=== PATIENT | female | born 1940 | race Caucasian/White ===

== ENCOUNTER 2016-04-15 11:10 | Outpatient (CLI) | payer MEDICARE, OTHER | END 2016-04-15 11:11 | disposition home or self-care (01) | DX: R68.89 Other general symptoms and signs (principal) ==

== ENCOUNTER 2016-04-22 08:00 | Outpatient (CLI) | payer MEDICARE, OTHER | END 2016-04-22 08:01 | disposition home or self-care (01) | DX: R76.9 Abnormal immunological finding in serum, unspecified (principal) ==

== ENCOUNTER 2016-11-14 09:35 | Outpatient (CLI) | payer MEDICARE, OTHER ==
[2016-11-14 18:03] LABS: ALBUMIN/GLOBULIN RATIO 1.6 (1.0-2.2); BILIRUBIN,TOTAL 0.8 mg/dL (0.2-1.0); BUN - BLOOD UREA NITROGEN 20 mg/dL (6-20); CALCIUM 9.6 mg/dL (8.5-10.3); CARBON DIOXIDE - CO2 28 mmol/L (21-32); CHLORIDE 106 mmol/L (101-111); CHOL/HDL RATIO 3.8 (<4.4); CHOLESTEROL 176 mg/dL; GFR - MDRD 54 (>89); GLUCOSE 103 mg/dL (70-100); HDL CHOLESTEROL 46 mg/dL; LDL/HDL RATIO 2.3 (<4.4); POTASSIUM 4.5 mmol/L (3.5-5.0); SODIUM 141 mmol/L (135-145); TOTAL PROTEIN 7.1 g/dL (6.7-8.2); TRIGLYCERIDES 122 mg/dL; VLDL CHOLESTEROL 24 mg/dL
[2016-11-14 18:05] LABS: BASOPHILS % (AUTO) 0.7 %; EOSINOPHILS # (AUTO) 0.1 10^3/uL (0.0-0.7); EOSINOPHILS % (AUTO) 1.2 %; HCT - HEMATOCRIT 42.3 % (37.0-47.0); HGB - HEMOGLOBIN 13.8 g/dL (12.0-16.0); LYMPHOCYTES # (AUTO) 1.5 10^3/uL (1.5-3.5); MEAN CORPUSCULAR HEMOGLOBIN 28.5 pg (27.0-31.0); MEAN CORPUSCULAR HGB CONC 32.7 g/dL (32.0-36.0); MEAN CORPUSCULAR VOLUME 87.1 fL (81.0-99.0); MEAN PLATELET VOLUME 8.8 fL (7.9-10.8); MONOCYTES # (AUTO) 0.5 10^3/uL (0.0-1.0); MONOCYTES % (AUTO) 9.6 %; NEUTROPHILS # (AUTO) 2.9 10^3/uL (1.5-6.6); NEUTROPHILS % (AUTO) 58.5 %; NUCLEATED RED BLOOD CELLS AUTO 0.1 /100WBC; RED BLOOD COUNT 4.85 10^6/uL (4.20-5.40); RED CELL DISTRIBUTION WIDTH 13.9 % (12.0-15.0)
[2016-11-14 18:21] LABS: HEMOGLOBIN A1C 0.55 g/dL
== END 2016-11-14 09:36 | disposition home or self-care (01) ==
LOC: LAB.R 09:35
PROVIDERS: ATTEND Nurse Practitioner Primary Care
DX: E55.9 Vitamin D deficiency, unspecified (principal); R73.01 Impaired fasting glucose; R53.81 Other malaise; E78.2 Mixed hyperlipidemia
CPT/HCPCS: 80053; 80061; 82306; 83036; 84443; 85025

== ENCOUNTER 2017-02-26 11:03 | Outpatient (CLI) | payer MEDICARE, OTHER ==
[2017-02-26 15:24] LABS: BASOPHILS % (AUTO) 0.7 %; EOSINOPHILS # (AUTO) 0.2 10^3/uL (0.0-0.7); EOSINOPHILS % (AUTO) 3.4 %; HCT - HEMATOCRIT 41.1 % (37.0-47.0); HGB - HEMOGLOBIN 13.8 g/dL (12.0-16.0); LYMPHOCYTES # (AUTO) 1.7 10^3/uL (1.5-3.5); MEAN CORPUSCULAR HEMOGLOBIN 29.1 pg (27.0-31.0); MEAN CORPUSCULAR HGB CONC 33.6 g/dL (32.0-36.0); MEAN CORPUSCULAR VOLUME 86.7 fL (81.0-99.0); MONOCYTES # (AUTO) 0.6 10^3/uL (0.0-1.0); MONOCYTES % (AUTO) 11.4 %; NEUTROPHILS # (AUTO) 2.4 10^3/uL (1.5-6.6); NEUTROPHILS % (AUTO) 49.5 %; RED BLOOD COUNT 4.74 10^6/uL (4.20-5.40); RED CELL DISTRIBUTION WIDTH 14.4 % (12.0-15.0); UNCORRECTED WHITE BLOOD COUNT 4.9 x10^3/uL; WHITE BLOOD COUNT 4.9 x10^3/uL (4.8-10.8)
[2017-02-26 15:33] LABS: ALBUMIN/GLOBULIN RATIO 1.4 (1.0-2.2); BILIRUBIN,TOTAL 0.5 mg/dL (0.2-1.0); BUN - BLOOD UREA NITROGEN 14 mg/dL (6-20); CALCIUM 9.4 mg/dL (8.5-10.3); CARBON DIOXIDE - CO2 26 mmol/L (21-32); CHLORIDE 101 mmol/L (101-111); CHOL/HDL RATIO 4.3 (<4.4); CHOLESTEROL 175 mg/dL; CREATININE 0.9 mg/dL (0.4-1.0); GFR - MDRD 61 (>89); GLUCOSE 95 mg/dL (70-100); HDL CHOLESTEROL 41 mg/dL; LDL/HDL RATIO 2.5 (<4.4); POTASSIUM 4.3 mmol/L (3.5-5.0); SODIUM 136 mmol/L (135-145); TOTAL PROTEIN 7.2 g/dL (6.7-8.2); TRIGLYCERIDES 163 mg/dL; VLDL CHOLESTEROL 33 mg/dL
== END 2017-02-26 11:04 | disposition home or self-care (01) ==
LOC: LAB.R 11:03
PROVIDERS: ATTEND Physician Assistant Medical
DX: E55.9 Vitamin D deficiency, unspecified (principal); E78.2 Mixed hyperlipidemia; Z79.899 Other long term (current) drug therapy
CPT/HCPCS: 80053; 80061; 82306; 85025

== ENCOUNTER 2017-04-10 08:20 | Outpatient (CLI) | payer MEDICARE, OTHER ==
--- NOTE | 2017-04-11 09:25 | DEXA Report ---
DEXA SCAN: 04/10/2017 COMPARISON: None. In accordance with the International Society for Clinical Densitometry (ISCD) guidelines, data from previous exams may be reanalyzed using current recommendations and techniques. This is done to allow a more accurate basis for comparison with the current study. INDICATION: Bone mineral density screening. TECHNIQUE: Standard DEXA screening of the hip and lumbar spine. Dual energy x- ray absorptiometry (DXA) was performed on a [employer] system. FINDINGS: Femoral neck bone mineral density measures 0.765 g/cm2, which corresponds to a T-score of -2.0 and Z-score -0.3. WHO classification osteopenia. Lumbar spine bone mineral density is 1.044 g/cm2, which corresponds to a T- score of -1.1 and Z-score 0.3. WHO classification osteopenia. The data for the lumbar spine is as follows: REGION BMD (g/cm/cm) T-SCORE Z-SCORE L1 1.003 -1.1 0.4 L2 0.988 -1.8 -0.3 L3 1.025 -1.5 0.0 L4 1.135 -0.5 0.9 TOTAL 1.044 -1.1 0.3 NOTE: All evaluable vertebrae are used for classification. The data for the hip is as follows: REGION BMD (g/cm/cm) T-SCORE Z-SCORE Neck 0.765 -2.0 -0.3 TOTAL 0.817 -1.5 0.0 NOTE: The femoral neck or total proximal femur, whichever is lowest, is used for classification. IMPRESSION: THE WHO CLASSIFICATION BASED ON THE INTERNATIONAL REFERENCE STANDARD IS OSTEOPENIA. THE FRACTURE RISK IS INCREASED. RECOMMENDATION: Patients with diagnosis of osteoporosis or osteopenia should have regular bone mineral density assessment. For those eligible for Medicare, routine testing is allowed once every 2 years. Testing frequency can be increased for patients who have rapidly progressing disease or for those who are receiving medical therapy to restore bone mass. COMMENT: World Health Organization (WHO) definitions for osteoporosis and osteopenia: NORMAL BMD: T-score at 1.0 or higher, fracture risk is low. OSTEOPENIA BMD: T-score between 1.0 and -2.5, fracture risk is increased. OSTEOPOROSIS BMD: T-score at 2.5 or lower, fracture risk high. National Osteoporosis Foundation recommends: 1. Obtain adequate dietary calcium (at least 1200 mg per day) and vitamin D (400 -800 international units per day). 2. Participate, as appropriate, in regular weightbearing and muscle- strengthening exercise. 3. Avoid tobacco use and reduce alcohol and caffeine intake. 4. For more detailed information see the website at www.NOF.org. MTDD
== END 2017-04-10 08:21 | disposition home or self-care (01) ==
LOC: DI 08:20
PROVIDERS: ATTEND Physician Assistant Medical
DX: M85.89 Other specified disorders of bone density and structure, multiple sites (principal)
CPT/HCPCS: 77080

== ENCOUNTER 2017-08-27 08:00 | Outpatient (CLI) | payer MEDICARE, OTHER ==
[2017-08-27 17:15] LABS: THYROID STIMULATING HORMONE 1.3 uIU/mL (0.34-5.60)
[2017-08-27 17:17] LABS: FREE T4 (FREE THYROXINE) 0.81 ng/dL (0.58-1.64)
== END 2017-08-27 08:01 | disposition home or self-care (01) ==
LOC: LAB.R 08:00
PROVIDERS: ATTEND Physician Assistant Medical
DX: L85.3 Xerosis cutis (principal)
CPT/HCPCS: 84439; 84443; 84481

== ENCOUNTER 2018-02-25 08:00 | Outpatient (CLI) | payer MEDICARE, OTHER ==
[2018-02-25 11:26] LABS: BASOPHILS % (AUTO) 0.6 %; EOSINOPHILS # (AUTO) 0.2 10^3/uL (0.0-0.7); EOSINOPHILS % (AUTO) 3.7 %; HGB - HEMOGLOBIN 13.6 g/dL (12.0-16.0); LYMPHOCYTES # (AUTO) 2.1 10^3/uL (1.5-3.5); LYMPHOCYTES % (AUTO) 38.7 %; MEAN CORPUSCULAR HEMOGLOBIN 28.9 pg (27.0-31.0); MEAN CORPUSCULAR HGB CONC 33.5 g/dL (32.0-36.0); MEAN CORPUSCULAR VOLUME 86.3 fL (81.0-99.0); MEAN PLATELET VOLUME 8.7 fL (7.9-10.8); MONOCYTES # (AUTO) 0.6 10^3/uL (0.0-1.0); MONOCYTES % (AUTO) 11.1 %; NEUTROPHILS # (AUTO) 2.4 10^3/uL (1.5-6.6); NEUTROPHILS % (AUTO) 45.9 %; PLT - PLATELET COUNT 248 10^3/uL (130-450); RED BLOOD COUNT 4.68 10^6/uL (4.20-5.40); RED CELL DISTRIBUTION WIDTH 14.4 % (12.0-15.0); WHITE BLOOD COUNT 5.3 x10^3/uL (4.8-10.8)
[2018-02-25 11:41] LABS: ALBUMIN 4.2 g/dL (3.2-5.5); ALBUMIN/GLOBULIN RATIO 1.6 (1.0-2.2); ALKALINE PHOSPHATASE 65 IU/L (42-121); ALT ALANINE AMINOTRANSFERASE 13 IU/L (10-60); AST ASPARTATE AMINOTRANSFERASE 18 IU/L (10-42); BILIRUBIN,TOTAL 0.9 mg/dL (0.2-1.0); BUN - BLOOD UREA NITROGEN 14 mg/dL (6-20); CALCIUM 9.1 mg/dL (8.5-10.3); CARBON DIOXIDE - CO2 27 mmol/L (21-32); CHLORIDE 104 mmol/L (101-111); CHOL/HDL RATIO 3.6 (<4.4); CHOLESTEROL 183 mg/dL; CREATININE 0.9 mg/dL (0.4-1.0); GFR - MDRD 61 (>89); GLUCOSE 94 mg/dL (70-100); HDL CHOLESTEROL 51 mg/dL; LDL CHOLESTEROL,CALCULATED 108 mg/dL; LDL/HDL RATIO 2.1 (<4.4); SODIUM 137 mmol/L (135-145); TOTAL PROTEIN 6.9 g/dL (6.7-8.2); VLDL CHOLESTEROL 24 mg/dL
== END 2018-02-25 23:59 | disposition home or self-care (01) ==
LOC: LAB.R 08:00
PROVIDERS: ATTEND Physician Assistant Medical
DX: E55.9 Vitamin D deficiency, unspecified (principal); Z79.899 Other long term (current) drug therapy; M15.9 Polyosteoarthritis, unspecified; L85.3 Xerosis cutis; E78.2 Mixed hyperlipidemia
CPT/HCPCS: 80053; 80061; 82306; 83721; 84443; 85025

== ENCOUNTER 2018-03-06 08:00 | Outpatient (CLI) | payer MEDICARE, OTHER ==
[2018-03-06 11:34] LABS: BILIRUBIN,URINE NEGATIVE (NEGATIVE); GLUCOSE, URINE (UA) NEGATIVE (NEGATIVE); KETONES,URINE (UA) NEGATIVE (NEGATIVE); LEUKOCYTE ESTERASE, URINE NEGATIVE (NEGATIVE); NITRITE,URINE NEGATIVE (NEGATIVE); OCCULT BLOOD,URINE NEGATIVE (NEGATIVE); PH,URINE 5.5 PH (5.0-7.5); PROTEIN,URINE NEGATIVE (NEGATIVE); UROBILINOGEN,URINE 0.2 (NORMAL) E.U./dL (NORMAL)
[2018-03-06 11:37] LABS: CLARITY,URINE CLEAR (CLEAR)
== END 2018-03-06 23:59 | disposition home or self-care (01) ==
LOC: LAB.R 08:00
PROVIDERS: ATTEND Physician Assistant Medical
DX: R32 Unspecified urinary incontinence (principal)
CPT/HCPCS: 81001; 81003; 87086

== ENCOUNTER 2018-09-22 16:15 | Outpatient (CLI) | payer MEDICARE, OTHER ==
[2018-09-22 16:34] LABS: BASOPHILS % (AUTO) 0.6 %; EOSINOPHILS # (AUTO) 0.1 10^3/uL (0.0-0.7); EOSINOPHILS % (AUTO) 1.8 %; HGB - HEMOGLOBIN 13.5 g/dL (12.0-16.0); LYMPHOCYTES # (AUTO) 1.9 10^3/uL (1.5-3.5); MEAN CORPUSCULAR HGB CONC 31.1 g/dL (32.0-36.0); MEAN CORPUSCULAR VOLUME 89.9 fL (81.0-99.0); MEAN PLATELET VOLUME 9.7 fL (7.9-10.8); MONOCYTES # (AUTO) 0.7 10^3/uL (0.0-1.0); NEUTROPHILS # (AUTO) 3.8 10^3/uL (1.5-6.6); NEUTROPHILS % (AUTO) 57.3 %; PLT - PLATELET COUNT 286 10^3/uL (130-450); RED BLOOD COUNT 4.83 10^6/uL (4.20-5.40); WHITE BLOOD COUNT 6.6 x10^3/uL (4.8-10.8)
== END 2018-09-22 16:16 | disposition home or self-care (01) ==
LOC: LAB 16:15
PROVIDERS: ATTEND Nurse Practitioner
DX: R53.83 Other fatigue (principal)
CPT/HCPCS: 36415; 84443; 85025

== ENCOUNTER 2019-03-16 16:52 | Outpatient (CLI) | payer MEDICARE, OTHER ==
[2019-03-16 17:31] LABS: BASOPHILS % (AUTO) 0.6 %; EOSINOPHILS # (AUTO) 0.2 10^3/uL (0.0-0.7); EOSINOPHILS % (AUTO) 2.7 %; HGB - HEMOGLOBIN 13.9 g/dL (12.0-16.0); LYMPHOCYTES # (AUTO) 1.9 10^3/uL (1.5-3.5); LYMPHOCYTES % (AUTO) 28.7 %; MEAN CORPUSCULAR HEMOGLOBIN 28.8 pg (27.0-31.0); MEAN CORPUSCULAR VOLUME 90.1 fL (81.0-99.0); MEAN PLATELET VOLUME 9.8 fL (7.9-10.8); MONOCYTES # (AUTO) 0.7 10^3/uL (0.0-1.0); MONOCYTES % (AUTO) 9.6 %; NEUTROPHILS # (AUTO) 3.9 10^3/uL (1.5-6.6); PLT - PLATELET COUNT 251 10^3/uL (130-450); RED BLOOD COUNT 4.83 10^6/uL (4.20-5.40); RED CELL DISTRIBUTION WIDTH 13.9 % (12.0-15.0); WHITE BLOOD COUNT 6.8 x10^3/uL (4.8-10.8)
[2019-03-16 17:43] LABS: ALBUMIN 4.4 g/dL (3.2-5.5); ALBUMIN/GLOBULIN RATIO 1.3 (1.0-2.2); BILIRUBIN,TOTAL 0.5 mg/dL (0.2-1.0); CALCIUM 10.1 mg/dL (8.5-10.3); CREATININE 0.9 mg/dL (0.4-1.0); TOTAL PROTEIN 7.7 g/dL (6.7-8.2)
[2019-03-16 17:59] LABS: CREATINE KINASE MB 2.9 ng/mL (0.6-6.3)
[2019-03-16 18:29] LABS: THYROID STIMULATING HORMONE 1.11 uIU/mL (0.34-5.60)
[2019-03-16 18:31] LABS: FREE T4 (FREE THYROXINE) 0.94 ng/dL (0.58-1.64)
--- NOTE | 2019-03-17 12:49 | XRAY Report ---
Reason: CHEST PAIN Procedure Date: 03/16/2019 Accession Number: [id number] / [id number] Procedure: XR - Chest 2 View X-Ray CPT Code: 12208 Final Report FULL RESULT: EXAM: CHEST RADIOGRAPHY EXAM DATE: 03/16/2019 05:30 PM. CLINICAL HISTORY: Chest pain. COMPARISON: CHEST 2 VIEW PA/LAT 04/05/2015 11:16 AM. TECHNIQUE: 2 views. FINDINGS: Lungs/Pleura: No focal opacities evident. No pleural effusion. No pneumothorax. Normal volumes. Mediastinum: Heart and mediastinal contours are unremarkable. Other: None. IMPRESSION: No acute cardiopulmonary abnormality. RADIA
== END 2019-03-16 16:53 | disposition home or self-care (01) ==
LOC: LAB 16:52 → DI 16:53
PROVIDERS: ATTEND Nurse Practitioner
DX: R07.9 Chest pain, unspecified (principal); R53.83 Other fatigue; E66.3 Overweight; E55.9 Vitamin D deficiency, unspecified
CPT/HCPCS: 36415; 71046; 80053; 82553; 84439; 84443; 84481; 84484; 85025

== ENCOUNTER 2019-03-16 19:31 | Emergency (ER) | payer MEDICARE, OTHER ==
[2019-03-16 19:57] LABS: BASOPHILS # (AUTO) 0.1 10^3/uL (0.0-0.1); BASOPHILS % (AUTO) 0.8 %; EOSINOPHILS # (AUTO) 0.2 10^3/uL (0.0-0.7); HGB - HEMOGLOBIN 13.8 g/dL (12.0-16.0); LYMPHOCYTES % (AUTO) 29.8 %; MEAN CORPUSCULAR HGB CONC 31.9 g/dL (32.0-36.0); MEAN CORPUSCULAR VOLUME 90.8 fL (81.0-99.0); MEAN PLATELET VOLUME 9.7 fL (7.9-10.8); MONOCYTES # (AUTO) 0.7 10^3/uL (0.0-1.0); MONOCYTES % (AUTO) 10.6 %; NEUTROPHILS # (AUTO) 3.7 10^3/uL (1.5-6.6); NEUTROPHILS % (AUTO) 55.5 %; PLT - PLATELET COUNT 247 10^3/uL (130-450); RED BLOOD COUNT 4.76 10^6/uL (4.20-5.40); RED CELL DISTRIBUTION WIDTH 13.8 % (12.0-15.0); WHITE BLOOD COUNT 6.6 x10^3/uL (4.8-10.8)
[2019-03-16 20:10] LABS: ALBUMIN 4.3 g/dL (3.2-5.5); ALBUMIN/GLOBULIN RATIO 1.3 (1.0-2.2); BILIRUBIN,TOTAL 0.5 mg/dL (0.2-1.0); CALCIUM 9.8 mg/dL (8.5-10.3); CREATININE 1.1 mg/dL (0.4-1.0); TOTAL PROTEIN 7.5 g/dL (6.7-8.2)
--- NOTE | 2019-03-16 20:23 | ED Physician Documentation ---
History of Present Illness - Stated complaint Stated Complaint: ABNORMAL LABS - Chief complaint Chief Complaint: Cardiac - Additonal information Additional information: This is a 79-year-old female denies past medical history who presents with resolved episodes of chest pressure and elevated troponin. Patient states that on Friday evening she developed an episode of chest pressure lasted 15 minutes with substernal and resolved with rest. She denies diaphoresis or radiation. She had another episode last night which was almost identical. She denies any cardiac history, has never had a stress test or catheterization. She was recently in [facility], and states that she is been feeling bit fatigued recently but she pinned this on the jet leg and travel to high altitude. She currently has no chest pain. She went into see her doctor this morning and had labs and a chest x-ray done, that work-up came back with a concerning troponin of around 160 so she was sent here for further evaluation. She is currently asymptomatic Review of Systems Constitutional: denies: Fever Cardiac: reports: Chest pain / pressure Respiratory: denies: Dyspnea GI: denies: Abdominal Pain : denies: Dysuria Skin: denies: Rash Neurologic: reports: Generalized weakness Immunocompromised: denies: Immunocompromised PD PAST MEDICAL HISTORY - Past Medical History Cardiovascular: None Respiratory: None Neuro: None Endocrine/Autoimmune: None GI: None EQUIPMENT ANALYST: None : None HEENT: None Psych: None Musculoskeletal: Osteoarthritis Derm: None - Past Surgical History Past Surgical History: Yes General: Colonoscopy Ortho: Hip replacement /EQUIPMENT ANALYST: Oophrectomy HEENT: Cataracts - Allergies Allergies/Adverse Reactions: Allergies Allergy/AdvReac Type Severity Reaction Status Date / Time No Known Drug Allergies Allergy Verified 12/08/12 13:49 - Social History Does the pt smoke?: No Smoking Status: Never smoker Does the pt drink ETOH?: No Does the pt have substance abuse?: No - Immunizations Immunizations are current?: Yes - POLST Patient has POLST: No PD ED PE NORMAL - Vitals Vital signs reviewed: Yes - General General: Alert and oriented X 3, No acute distress - HEENT HEENT: PERRL - Neck Neck: Supple, no meningeal sign - Cardiac Cardiac: RRR, No murmur - Respiratory Respiratory: Clear bilaterally - Abdomen Abdomen: Normal bowel sounds, Soft, Non tender, Non distended - Derm Derm: Warm and dry - Extremities Extremities: No deformity - Neuro Neuro: Alert and oriented X 3 - Psych Psych: Normal mood, Normal affect Results - Vitals Vitals: Oxygen O2 Source Room air - EKG (time done) 19:58 Other comments: Other comments (Rate 73, rhythm sinus, there is slight ST depression laterally, with T wave inversions in the anterior leads and lateral leads. There is no significant ST elevation. There is poor R wave progression.) - Labs Labs: Laboratory Tests 03/16/19 03/16/19 03/16/19 19:52 19:52 19:52 WBC 6.6 RBC 4.76 Hgb 13.8 Hct 43.2 MCV 90.8 MCH 29.0 MCHC 31.9 L RDW 13.8 Plt Count 247 MPV 9.7 Neut # (Auto) 3.7 Lymph # (Auto) 2.0 Stokes # (Auto) 0.7 Eos # (Auto) 0.2 Baso # (Auto) 0.1 Absolute Nucleated RBC 0.00 Nucleated RBC % 0.0 Sodium 139 Potassium 3.4 L Chloride 106 Carbon Dioxide 26 Anion Gap 7.0 BUN 24 H Creatinine 1.1 H Estimated GFR (MDRD) 48 L Glucose 135 H Calcium 9.8 Total Bilirubin 0.5 AST 17 ALT 14 Alkaline Phosphatase 56 Troponin I High Sens 268.0 H* Total Protein 7.5 Albumin 4.3 Globulin 3.2 Albumin/Globulin Ratio 1.3 Lipase 36 - Rads (name of study) CXR 2 view Radiology: Other (My preliminary read shows no consolidation, pneumothorax, or cardiomegaly.) PD MEDICAL DECISION MAKING - ED course Complexity details: considered differential (ACS, pneumonia, pneumothorax, peptic ulcer disease, gastritis, Dysrhythmia) ED course: On arrival patient is very well-appearing vital signs are unremarkable and patient is symptom-free. Labs were performed, they are notable for a troponin which rhett from her earlier level of 196 up to 268. Her EKG does show T wave inversions and slight ST depressions, but there are no ST elevations. She was given 325 mg of aspirin and started on a heparin drip. She continues to be asymptomatic on reassessment. She has never had any cardiac work-up in the past. She has no clinical signs of DVT, and the complete resolution of her pain as well as the substernal pressure-like characteristic of it makes pulmonary embolism highly unlikely. Her chest x-ray shows no acute cardiopulmonary abnormality on my read. I spoke with Dr. Mina of paving block cutter at [facility] at 21:00, after reviewing the case he recommends that patient be transferred admitted to the hospitalist service, they obtain a set of normal troponins, continue the heparin, and unless there are significant changes They can speak to the paving block cutter manager of organizational development tomorrow morning. I Spoke with Dr. Merino of the hospitalist service, who accepted the patient for transfer. She will be transferred via ALS with heparin running. Patient is in agreement the plan, symptom free at this time. I updated her and answered her questions. Departure - Departure Disposition: 02 Transfer Acute Care Hosp Clinical Impression: NSTEMI (non-ST elevated myocardial infarction) Condition: Good Discharge Date/Time: 03/16/19 22:45
[2019-03-16] MEDS ORDERED: HEPARIN 25000UNITS/500ML (D5W) 25,000 UNIT/500 ML BAG IV STA (20:33)
[2019-03-16] MEDS ORDERED: ASPIRIN 325 MG TABLET PO STA (20:33)
[2019-03-16 22:10] VITALS: BP 160/94
== END 2019-03-16 22:45 | disposition short-term general hospital (02) ==
LOC: ED 19:31
DX: I21.4 Non-ST elevation (NSTEMI) myocardial infarction (principal); R53.83 Other fatigue; E66.3 Overweight; E55.9 Vitamin D deficiency, unspecified
CPT/HCPCS: 36415; 71046; 80053; 82553; 83690; 84439; 84443; 84481; 84484; 85025; 93005; 96374; 99284; 99285; A9270

== ENCOUNTER 2019-03-16 22:52 | Outpatient (CLI) | payer MEDICARE, OTHER | END 2019-03-16 23:59 | disposition short-term general hospital (02) | LOC: EMS 22:52 | PROVIDERS: ATTEND Surgery | DX: I21.4 Non-ST elevation (NSTEMI) myocardial infarction (principal) | CPT/HCPCS: A0425; A0426 ==

== ENCOUNTER 2019-04-21 09:40 | Outpatient (CLI) | payer MEDICARE, OTHER ==
[2019-04-21 10:02] LABS: BASOPHILS # (AUTO) 0.1 10^3/uL (0.0-0.1); EOSINOPHILS # (AUTO) 0.1 10^3/uL (0.0-0.7); EOSINOPHILS % (AUTO) 2.7 %; HGB - HEMOGLOBIN 13.6 g/dL (12.0-16.0); LYMPHOCYTES # (AUTO) 1.5 10^3/uL (1.5-3.5); LYMPHOCYTES % (AUTO) 29.6 %; MEAN CORPUSCULAR HEMOGLOBIN 28.6 pg (27.0-31.0); MEAN CORPUSCULAR HGB CONC 32.3 g/dL (32.0-36.0); MEAN CORPUSCULAR VOLUME 88.6 fL (81.0-99.0); MEAN PLATELET VOLUME 10.2 fL (7.9-10.8); MONOCYTES # (AUTO) 0.6 10^3/uL (0.0-1.0); MONOCYTES % (AUTO) 10.9 %; NEUTROPHILS # (AUTO) 2.9 10^3/uL (1.5-6.6); NEUTROPHILS % (AUTO) 55.6 %; PLT - PLATELET COUNT 267 10^3/uL (130-450); RED BLOOD COUNT 4.75 10^6/uL (4.20-5.40); RED CELL DISTRIBUTION WIDTH 13.5 % (12.0-15.0); WHITE BLOOD COUNT 5.1 x10^3/uL (4.8-10.8)
[2019-04-21 10:31] LABS: ALBUMIN 4.3 g/dL (3.2-5.5); ALBUMIN/GLOBULIN RATIO 1.4 (1.0-2.2); ALKALINE PHOSPHATASE 62 IU/L (42-121); ALT ALANINE AMINOTRANSFERASE 14 IU/L (10-60); AST ASPARTATE AMINOTRANSFERASE 17 IU/L (10-42); BILIRUBIN,TOTAL 0.9 mg/dL (0.2-1.0); BUN - BLOOD UREA NITROGEN 17 mg/dL (6-20); CALCIUM 9.1 mg/dL (8.5-10.3); CARBON DIOXIDE - CO2 25 mmol/L (21-32); CHLORIDE 105 mmol/L (101-111); CHOL/HDL RATIO 2.5 (<4.4); CHOLESTEROL 101 mg/dL; GFR - MDRD 54 (>89); GLUCOSE 114 mg/dL (70-100); HDL CHOLESTEROL 41 mg/dL; LDL CHOLESTEROL,CALCULATED 41 mg/dL; SODIUM 139 mmol/L (135-145); TOTAL PROTEIN 7.3 g/dL (6.7-8.2); VLDL CHOLESTEROL 19 mg/dL
== END 2019-04-21 09:41 | disposition home or self-care (01) ==
LOC: LAB 09:40
PROVIDERS: ATTEND Physician Assistant
DX: I25.10 Atherosclerotic heart disease of native coronary artery without angina pectoris (principal)
CPT/HCPCS: 36415; 80053; 80061; 83721; 85025

== ENCOUNTER 2019-05-20 13:33 | Emergency (ER) | payer MEDICARE, OTHER ==
[2019-05-20 14:04] LABS: BASOPHILS % (AUTO) 0.4 %; EOSINOPHILS # (AUTO) 0.2 10^3/uL (0.0-0.7); EOSINOPHILS % (AUTO) 2.2 %; HGB - HEMOGLOBIN 12.3 g/dL (12.0-16.0); LYMPHOCYTES # (AUTO) 1.4 10^3/uL (1.5-3.5); LYMPHOCYTES % (AUTO) 19.8 %; MEAN CORPUSCULAR HEMOGLOBIN 28.7 pg (27.0-31.0); MEAN CORPUSCULAR VOLUME 89.5 fL (81.0-99.0); MEAN PLATELET VOLUME 9.7 fL (7.9-10.8); MONOCYTES # (AUTO) 0.8 10^3/uL (0.0-1.0); MONOCYTES % (AUTO) 11.6 %; NEUTROPHILS # (AUTO) 4.7 10^3/uL (1.5-6.6); NEUTROPHILS % (AUTO) 65.6 %; PLT - PLATELET COUNT 272 10^3/uL (130-450); RED BLOOD COUNT 4.29 10^6/uL (4.20-5.40); WHITE BLOOD COUNT 7.1 x10^3/uL (4.8-10.8)
[2019-05-20 14:18] LABS: INR 1.1 (0.8-1.2); PT - PROTHROMBIN TIME 12.3 secs (9.9-12.6)
[2019-05-20 14:19] LABS: ALBUMIN 4.3 g/dL (3.2-5.5); ALBUMIN/GLOBULIN RATIO 1.5 (1.0-2.2); CALCIUM 9.1 mg/dL (8.5-10.3); CREATININE 0.8 mg/dL (0.4-1.0); TOTAL PROTEIN 7.1 g/dL (6.7-8.2)
--- NOTE | 2019-05-20 14:52 | ED Physician Documentation ---
PD HPI CHEST PAIN - Stated complaint Stated Complaint: CHEST PX - Chief complaint Chief Complaint: Cardiac - History obtained from History obtained from: Patient, Family - History of Present Illness Timing - onset: How many days ago (5) Timing - onset during: Rest Timing - duration: Days (5) Timing - details: Gradual onset, Still present Quality: Sharp, Pain Location: Left chest Radiation: No: Jaw, Neck, Back Improved by: Rest Worsened by: Inspiration, Movement, Palpation, Position Associated symptoms: No: Shortness of air, Diaphoresis, Nausea, Vomiting, Feeling faint / dizzy, General Weakness, Palpitations, Cough Similar symptoms before: Diagnosis (chest wall strain and [place]) Recently seen: Not recently seen - Additional information Additional information: 79-year-old female had a recent travel to [facility] where she fell out of bed one night and strained herself pulling herself back up into bed. She has pain in her left chest wall now that is painful if she moves her arm a certain way or if she pushes on her chest wall. She denies any shortness of breath associated with this she states that symptoms have been present since shortly after her fall and she did not want to be seen at [facility] and [place]. She skipped the hospital in [place] continue her travel and has come into the emergency department here today for evaluation after talking to her primary care doctor who recommended she come here for testing. She has had a prior [place] in March with a stent placement. She has had a fall before falling out of bed and she bruised her left anterior calf. Review of Systems Constitutional: denies: Fever, Myalgias, Fatigue Eyes: denies: Decreased vision Ears: denies: Ear pain Nose: denies: Rhinorrhea / runny nose, Congestion Throat: denies: Sore throat Cardiac: reports: Chest pain / pressure. denies: Palpitations, Pedal edema, Calf pain Respiratory: denies: Dyspnea, Cough GI: reports: Diarrhea (last week). denies: Abdominal Pain, Nausea, Vomiting, Constipation : denies: Dysuria, Frequency Skin: denies: Rash Musculoskeletal: denies: Neck pain, Back pain, Extremity pain Neurologic: denies: Generalized weakness, Focal weakness, Numbness PD PAST MEDICAL HISTORY - Past Medical History Cardiovascular: None Respiratory: None Neuro: None Endocrine/Autoimmune: None GI: None LEAD NET SOFTWARE DEVELOPER: None : None HEENT: None Psych: None Musculoskeletal: Osteoarthritis Derm: None - Past Surgical History Past Surgical History: Yes General: Colonoscopy Ortho: Hip replacement /LEAD NET SOFTWARE DEVELOPER: Oophrectomy HEENT: Cataracts - Present Medications Home Medications: Ambulatory Orders Medication Instructions Recorded Confirmed Clopidogrel Bisulfate [Clopidogrel] 75 mg ORAL DAILY 05/20/19 05/20/19 - Allergies Allergies/Adverse Reactions: Allergies Allergy/AdvReac Type Severity Reaction Status Date / Time No Known Drug Allergies Allergy Verified 12/08/12 13:49 - Social History Does the pt smoke?: No Smoking Status: Never smoker Does the pt drink ETOH?: No Does the pt have substance abuse?: No - Immunizations Immunizations are current?: Yes - POLST Patient has POLST: No PD ED PE NORMAL - Vitals Vital signs reviewed: Yes (hypertensive mild ) - General General: Alert and oriented X 3, No acute distress, Well developed/nourished - HEENT HEENT: Atraumatic, PERRL, EOMI - Neck Neck: Supple, no meningeal sign, No bony TTP - Cardiac Cardiac: RRR, No murmur - Respiratory Respiratory: No respiratory distress, Clear bilaterally, Other (There is chest wall and breast tenderness that reproduce the symtpoms the patient is having ) - Abdomen Abdomen: Soft, Non tender - Back Back: No CVA TTP, No spinal TTP - Derm Derm: Normal color, Warm and dry, No rash - Extremities Extremities: No deformity, No edema, No calf tenderness / cord, Other (There is ecchymosis to the anterior left calf extending from just above the knee to the ankle. The bruising appears to be the stated age as described above.) - Neuro Neuro: Alert and oriented X 3, traffic chief 2-12 intact, No motor deficit, No sensory deficit, Normal speech Eye Opening: Spontaneous Motor: Obeys Commands Verbal: Oriented GCS Score: 15 - Psych Psych: Normal mood, Normal affect Results - Vitals Vitals: Vital Signs - 24 hr 05/20/19 05/20/19 05/20/19 13:45 14:44 15:43 Temperature 36.4 C L Heart Rate 66 64 65 Respiratory 18 20 20 Rate Blood Pressure 134/72 H 133/82 H 139/82 H O2 Saturation 100 100 100 05/20/19 15:57 Temperature Heart Rate 62 Respiratory 17 Rate Blood Pressure 139/82 H O2 Saturation 100 Oxygen O2 Source Room air - EKG (time done) 1342 Rate: Rate (enter#) (69) Rhythm: NSR QRS: Low voltage Compare to prior EKG: Changed from prior EKG (SPT 03-16-2019 lateral T wave inversions have resolved. ) Computer interpretation: Agree with computer - Labs Labs: Laboratory Tests 05/20/19 05/20/19 05/20/19 13:57 13:57 13:57 WBC 7.1 RBC 4.29 Hgb 12.3 Hct 38.4 MCV 89.5 MCH 28.7 MCHC 32.0 RDW 14.0 Plt Count 272 MPV 9.7 Neut # (Auto) 4.7 Lymph # (Auto) 1.4 L Maverick # (Auto) 0.8 Eos # (Auto) 0.2 Baso # (Auto) 0.0 Absolute Nucleated RBC 0.00 Nucleated RBC % 0.0 PT 12.3 INR 1.1 Sodium 138 Potassium 3.6 Chloride 103 Carbon Dioxide 25 Anion Gap 10.0 BUN 15 Creatinine 0.8 Estimated GFR (MDRD) 70 L Glucose 91 Calcium 9.1 Total Bilirubin 1.0 AST 16 ALT 14 Alkaline Phosphatase 64 Troponin I High Sens Total Protein 7.1 Albumin 4.3 Globulin 2.8 Albumin/Globulin Ratio 1.5 Lipase 30 05/20/19 13:57 WBC RBC Hgb Hct MCV MCH MCHC RDW Plt Count MPV Neut # (Auto) Lymph # (Auto) Maverick # (Auto) Eos # (Auto) Baso # (Auto) Absolute Nucleated RBC Nucleated RBC % PT INR Sodium Potassium Chloride Carbon Dioxide Anion Gap BUN Creatinine Estimated GFR (MDRD) Glucose Calcium Total Bilirubin AST ALT Alkaline Phosphatase Troponin I High Sens 3.1 Total Protein Albumin Globulin Albumin/Globulin Ratio Lipase - Rads (name of study) chest 2 view Radiology: Prelim report reviewed (Impression: No consolidation.), EMP read indepedently, See rad report PD MEDICAL DECISION MAKING - ED course Complexity details: reviewed old records, reviewed results, re-evaluated patient, considered differential, d/w patient, d/w family ED course: 79 y/o female with recent plane travel presents to the ED with chest pain. Normal vitals, normal EKG, normal chest and chest wall tenderness reproducing the symptoms the patient is having. She has an extensive bruise to the right calf with ecchymosis appearing the age of the stated injury. I did not draw the D-dimer as I was confident the chest pain was not related to PE and I suspect it could be falsely elevated due to the bruising the patient has and this would trigger an unnecessary test. She is diagnosed with a chest wall strain and she is offered dexamethasone and Toradol which she states that she feels would be unnecessary. She states that if she did not have this thing happen with her heart 2 months ago she would have stayed at home knowing she has a chest wall strain and it would have improved and resolved. Departure - Departure Disposition: 01 Home, Self Care Clinical Impression: Chest wall pain Condition: Stable Instructions: ED Strain Chest Wall Follow-Up: Leo Hector MD [Primary Care Provider] - Discharge Date/Time: 05/20/19 16:10
--- NOTE | 2019-05-20 15:28 | XRAY Report ---
Reason: left sided chest pain Procedure Date: 05/20/2019 Accession Number: [id number] / [id number] Procedure: XR - Chest 2 View X-Ray CPT Code: 12461 Final Report FULL RESULT: EXAM: CHEST RADIOGRAPHY EXAM DATE: 05/20/2019 03:20 PM. CLINICAL HISTORY: Left sided chest pain. COMPARISON: CHEST 2 VIEW 03/16/2019 5:30 PM. TECHNIQUE: 2 views. FINDINGS: Lungs/Pleura: No focal opacities evident. No pleural effusion. No pneumothorax. Normal volumes. Mediastinum: Heart and mediastinal contours are unremarkable. Other: Chronic lower thoracic compression deformity. Bones appear osteopenic. IMPRESSION: No consolidation. RADIA
[2019-05-20] MEDS ORDERED: DEXAMETHASONE 10 MG/ML VIAL IVP STA (15:38)
[2019-05-20] MEDS ORDERED: KETOROLAC 30 MG/ML VIAL IVP STA (15:38)
[2019-05-20 15:44] VITALS: BP 139/82
== END 2019-05-20 16:10 | disposition home or self-care (01) ==
LOC: ED 13:33
DX: S29.011A Strain of muscle and tendon of front wall of thorax, initial encounter (principal); S80.12XA Contusion of left lower leg, initial encounter; W06.XXXA Fall from bed, initial encounter; Y92.89 Other specified places as the place of occurrence of the external cause; I25.2 Old myocardial infarction; Z95.5 Presence of coronary angioplasty implant and graft
CPT/HCPCS: 36415; 71046; 80053; 83690; 84484; 85025; 85610; 93005; 99284

== ENCOUNTER 2020-03-20 14:17 | Outpatient (CLI) | payer MEDICARE, OTHER ==
--- NOTE | 2020-03-20 16:55 | DEXA Report ---
PROCEDURE: Dexa Spine and/or Hip INDICATIONS: POST MENOPAUSAL TECHNIQUE: Dual energy x-ray absorptiometry (DXA) was performed on a [employer] System. Regions measur ed are the AP Spine, femoral neck, and if needed forearm. COMPARISON: 04/10/2017. FINDINGS: Lumbar Spine: Bone Mineral Density 0.963 g/cm/cm,T score -1.8, there is 7.8% decrease in total lumbar spine bone mineral density since previous study. Right Hip: Bone Mineral Density 0.755 g/cm/cm,T score -2.0, there is 7.6% decrease in right total hip bone mine ral density. Right Femoral Neck: Bone Mineral Density 0.719 g/cm/cm, T score -2.3. (T score greater or equal to -1.0: NORMAL) (T score from -1.1 to -2.4: OSTEOPENIA) (T score less than or equal to -2.5 to: OSTEOPOROSIS) Impression: Osteopenia. Patients with diagnosis of osteoporosis or osteopenia should have regular bone mineral density assess ment. For those eligible for Medicare, routine testing is allowed once every 2 years. Testing frequ ency can be increased for patients who have rapidly progressing disease or for those who are receivin g medical therapy to restore bone mass. Reviewed by: Avinash Wakefield MD on 03/20/2020 4:54 PM PST Approved by: Avinash Wakefield MD on 03/20/2020 4:54 PM PST Station ID: [id number]
== END 2020-03-20 14:18 | disposition home or self-care (01) ==
LOC: DI 14:17
PROVIDERS: ATTEND Family Medicine
DX: M85.89 Other specified disorders of bone density and structure, multiple sites (principal); Z78.0 Asymptomatic menopausal state

== ENCOUNTER 2020-03-20 14:18 | Outpatient (CLI) | payer MEDICARE, OTHER ==
--- NOTE | 2020-03-21 08:59 | Mammography Report ---
BILATERAL DIGITAL SCREENING MAMMOGRAM 3D/2D: 03/20/2020 CLINICAL: Routine screening. Comparison is made to exams dated: 04/10/2017 mammogram and 01/25/2014 mammogram - [facility]. There are scattered fibroglandular elements in both breasts. No significant masses, calcifications, or other findings are seen in either breast. There has been no significant interval change. IMPRESSION: NEGATIVE There is no mammographic evidence of malignancy. A 1 year screening mammogram is recommended. This exam was interpreted at Station ID: [id number]. NOTE: For mammograms, a report in lay terms will be sent to the patient. Approximately 15% of breast malignancies will not be visualized mammographically. In the management of a palpable breast mass, a negative mammogram must not discourage biopsy of a clinically suspicious lesion. Electronically Signed By: Karl Panchal acr/penrad:03/20/2020 16:22:59 ACR BI-RADS Category 1: Negative 3341F PARENCHYMAL PATTERN: (A) - The breast(s) demonstrate(s) scattered fibroglandular densities. BI-RADS CATEGORY: (1) - 1 RECOMMENDATION: (ANNUAL) - Recommend routine annual screening mammography. [id number] 1 year screening LATERALITY: (B)
== END 2020-03-20 14:19 | disposition home or self-care (01) ==
LOC: DI 14:18
PROVIDERS: ATTEND Family Medicine
DX: Z12.31 Encounter for screening mammogram for malignant neoplasm of breast (principal)
CPT/HCPCS: 77067

== ENCOUNTER 2020-03-24 10:05 | Outpatient (CLI) | payer MEDICARE, OTHER ==
[2020-03-24 10:32] LABS: BASOPHILS % (AUTO) 0.6 %; EOSINOPHILS # (AUTO) 0.1 10^3/uL (0.0-0.7); EOSINOPHILS % (AUTO) 2.1 %; HGB - HEMOGLOBIN 12.9 g/dL (12.0-16.0); LYMPHOCYTES # (AUTO) 1.5 10^3/uL (1.5-3.5); LYMPHOCYTES % (AUTO) 31.5 %; MEAN CORPUSCULAR HEMOGLOBIN 28.7 pg (27.0-31.0); MEAN CORPUSCULAR HGB CONC 32.1 g/dL (32.0-36.0); MEAN CORPUSCULAR VOLUME 89.5 fL (81.0-99.0); MEAN PLATELET VOLUME 9.8 fL (7.9-10.8); MONOCYTES # (AUTO) 0.5 10^3/uL (0.0-1.0); MONOCYTES % (AUTO) 10.5 %; NEUTROPHILS # (AUTO) 2.7 10^3/uL (1.5-6.6); NEUTROPHILS % (AUTO) 55.3 %; PLT - PLATELET COUNT 254 10^3/uL (130-450); RED BLOOD COUNT 4.49 10^6/uL (4.20-5.40); WHITE BLOOD COUNT 4.9 x10^3/uL (4.8-10.8)
[2020-03-24 10:44] LABS: ALBUMIN/GLOBULIN RATIO 1.4 (1.0-2.2); BILIRUBIN,TOTAL 0.7 mg/dL (0.2-1.0); CALCIUM 9.2 mg/dL (8.5-10.3); CREATININE 0.9 mg/dL (0.4-1.0); TOTAL PROTEIN 6.8 g/dL (6.7-8.2)
== END 2020-03-24 10:06 | disposition home or self-care (01) ==
LOC: LAB 10:05
PROVIDERS: ATTEND Family Medicine
DX: R10.9 Unspecified abdominal pain (principal)
CPT/HCPCS: 36415; 80053; 85025

== ENCOUNTER 2020-06-05 10:41 | Outpatient (CLI) | payer MEDICARE, OTHER ==
--- NOTE | 2020-06-05 15:39 | XRAY Report ---
PROCEDURE: Hip w/Pelvis 2-3V RT INDICATIONS: HIP JOINT PAIN, RIGHT TECHNIQUE: AP pelvis with lateral view(s) of the right hip(s). COMPARISON: CT abdomen pelvis 01/22/2016 FINDINGS: Bones: No fractures or dislocations. Pelvic ring appears intact. No suspicious bony lesions. Left hip arthroplasty. There is moderate to severe arthritic narrowing of the right hip with subchondral sclerosis. Soft tissues: The visualized bowel gas pattern is normal. No suspicious soft tissue calcifications. IMPRESSION: Moderate to severe right hip arthritis. Reviewed by: Joyce Dallas MD on 06/05/2020 3:38 PM PST Approved by: Joyce Dallas MD on 06/05/2020 3:38 PM PST Station ID: [id number]
== END 2020-06-05 10:42 | disposition home or self-care (01) ==
LOC: DI 10:41
PROVIDERS: ATTEND Family Medicine
DX: M16.11 Unilateral primary osteoarthritis, right hip (principal)

== ENCOUNTER 2020-07-31 17:01 | Outpatient (CLI) | payer MEDICARE, OTHER ==
--- NOTE | 2020-08-01 13:45 | XRAY Report ---
PROCEDURE: Knee 3 View RT INDICATIONS: ARTHRITIS KNEE, RIGHT TECHNIQUE: 3 views of the right knee(s) were acquired. COMPARISON: None. FINDINGS: Bones: No fractures or dislocations. No suspicious bony lesions. There is moderate to severe media l patellofemoral compartment narrowing. Periarticular osteophytes are present without erosions. Chond rocalcinosis is present. Soft tissues: No joint effusion. No suspicious soft tissue calcifications. IMPRESSION: Predominantly medial and patellofemoral degenerative narrowing most suggestive of osteoa rthritis. Reviewed by: Joyce Dallas MD on 08/01/2020 12:44 PM MELISSA Approved by: Joyce Dallas MD on 08/01/2020 12:44 PM MELISSA Station ID: [id number]
== END 2020-07-31 17:02 | disposition home or self-care (01) ==
LOC: DI 17:01
PROVIDERS: ATTEND Family Medicine
DX: M17.11 Unilateral primary osteoarthritis, right knee (principal)

== ENCOUNTER 2020-08-31 10:07 | Outpatient (CLI) | payer MEDICARE, OTHER ==
[2020-08-31 11:00] LABS: BASOPHILS % (AUTO) 0.7 %; EOSINOPHILS # (AUTO) 0.1 10^3/uL (0.0-0.7); EOSINOPHILS % (AUTO) 1.3 %; HCT - HEMATOCRIT 38.8 % (37.0-47.0); HGB - HEMOGLOBIN 12.6 g/dL (12.0-16.0); LYMPHOCYTES # (AUTO) 1.4 10^3/uL (1.5-3.5); LYMPHOCYTES % (AUTO) 23.2 %; MEAN CORPUSCULAR HGB CONC 32.5 g/dL (32.0-36.0); MEAN CORPUSCULAR VOLUME 89.2 fL (81.0-99.0); MEAN PLATELET VOLUME 9.6 fL (7.9-10.8); MONOCYTES # (AUTO) 0.7 10^3/uL (0.0-1.0); MONOCYTES % (AUTO) 11.3 %; NEUTROPHILS # (AUTO) 3.8 10^3/uL (1.5-6.6); NEUTROPHILS % (AUTO) 63.3 %; PLT - PLATELET COUNT 257 10^3/uL (130-450); RED BLOOD COUNT 4.35 10^6/uL (4.20-5.40); RED CELL DISTRIBUTION WIDTH 14.1 % (12.0-15.0)
[2020-08-31 11:06] LABS: INR 1.1 (0.8-1.2); PT - PROTHROMBIN TIME 12.3 secs (9.9-12.6)
[2020-08-31 11:13] LABS: PARTIAL THROMBOPLASTIN TIME 28.1 secs (24.9-33.3)
[2020-08-31 11:22] LABS: ALBUMIN 4.1 g/dL (3.2-5.5); ALBUMIN/GLOBULIN RATIO 1.5 (1.0-2.2); BILIRUBIN,TOTAL 0.6 mg/dL (0.2-1.0); CALCIUM 9.3 mg/dL (8.5-10.3); POTASSIUM 4.1 mmol/L (3.5-5.0); TOTAL PROTEIN 6.8 g/dL (6.7-8.2)
== END 2020-08-31 10:08 | disposition home or self-care (01) ==
LOC: LAB 10:07
PROVIDERS: ATTEND Family Medicine
DX: I25.10 Atherosclerotic heart disease of native coronary artery without angina pectoris (principal); Z95.5 Presence of coronary angioplasty implant and graft; M16.11 Unilateral primary osteoarthritis, right hip
CPT/HCPCS: 36415; 80053; 85025; 85610; 85730; 93005

== ENCOUNTER 2020-10-10 08:00 | Outpatient (CLI) | payer MEDICARE, OTHER ==
[2020-10-10 17:56] LABS: BASOPHILS % (AUTO) 0.7 %; EOSINOPHILS # (AUTO) 0.2 10^3/uL (0.0-0.7); EOSINOPHILS % (AUTO) 2.7 %; HCT - HEMATOCRIT 38.6 % (37.0-47.0); HGB - HEMOGLOBIN 11.8 g/dL (12.0-16.0); LYMPHOCYTES # (AUTO) 1.5 10^3/uL (1.5-3.5); LYMPHOCYTES % (AUTO) 27.8 %; MEAN CORPUSCULAR HGB CONC 30.6 g/dL (32.0-36.0); MEAN CORPUSCULAR VOLUME 91.7 fL (81.0-99.0); MEAN PLATELET VOLUME 9.6 fL (7.9-10.8); MONOCYTES # (AUTO) 0.6 10^3/uL (0.0-1.0); MONOCYTES % (AUTO) 11.5 %; NEUTROPHILS # (AUTO) 3.1 10^3/uL (1.5-6.6); NEUTROPHILS % (AUTO) 57.1 %; PLT - PLATELET COUNT 457 10^3/uL (130-450); RED BLOOD COUNT 4.21 10^6/uL (4.20-5.40); RED CELL DISTRIBUTION WIDTH 13.9 % (12.0-15.0); WHITE BLOOD COUNT 5.5 x10^3/uL (4.8-10.8)
[2020-10-10 18:28] LABS: THYROID STIMULATING HORMONE 1.14 uIU/mL (0.34-5.60)
[2020-10-10 18:42] LABS: ALBUMIN 4.1 g/dL (3.2-5.5); ALBUMIN/GLOBULIN RATIO 1.2 (1.0-2.2); ALKALINE PHOSPHATASE 71 IU/L (42-121); ALT ALANINE AMINOTRANSFERASE 11 IU/L (10-60); AST ASPARTATE AMINOTRANSFERASE 15 IU/L (10-42); BILIRUBIN,TOTAL 0.8 mg/dL (0.2-1.0); BUN - BLOOD UREA NITROGEN 25 mg/dL (6-20); CALCIUM 9.9 mg/dL (8.5-10.3); CARBON DIOXIDE - CO2 27 mmol/L (21-32); CHLORIDE 101 mmol/L (101-111); CREATININE 1.2 mg/dL (0.4-1.0); GFR - MDRD 43 (>89); GLUCOSE 122 mg/dL (70-100); SODIUM 136 mmol/L (135-145); TOTAL PROTEIN 7.4 g/dL (6.7-8.2)
[2020-10-10 19:03] LABS: CRP - C-REACTIVE PROTEIN < 1.0 mg/dL (0-1.0)
== END 2020-10-10 23:59 | disposition home or self-care (01) ==
LOC: LAB.WCP 08:00
PROVIDERS: ATTEND Family Medicine
DX: R63.4 Abnormal weight loss (principal); R68.81 Early satiety
CPT/HCPCS: 36415; 80053; 84443; 85025; 85651; 86140

== ENCOUNTER 2020-10-23 11:46 | Outpatient (CLI) | payer MEDICARE, OTHER ==
[2020-10-23] MEDS ORDERED: IOVERSOL 320 50 ML VIAL ONE (11:53)
[2020-10-23] MEDS ORDERED: IOVERSOL 320 100 ML VIAL IVP ONE ×2 (11:53→13:29)
[2020-10-23] MEDS ORDERED: IOVERSOL 320 50 ML VIAL PO ONE (13:29)
--- NOTE | 2020-10-23 13:47 | CT Report ---
PROCEDURE: ABDOMEN W INDICATIONS: DECREASED APPETITIE, WEIGHT LOSS EARLY SATIETY CONTRAST: IV CONTRAST: Optiray 320 ml: 100 PO CONTRAST: Optiray 320 ml50 TECHNIQUE: After the administration of oral and intravenous contrast, 5 mm thick sections acquired from the diap hragms to the iliac crests. 5 mm thick coronal and sagittal reformats were acquired. For radiation dose reduction, the following was used: automated exposure control, adjustment of mA and/or kV accor ding to patient size. COMPARISON: CT abdomen pelvis 01/22/2016 FINDINGS: Image quality: Excellent. Lung bases: Lung bases are clear. Heart size is mildly prominent. Solid organs: Liver is normal with steatosis. Spleen is within size and enhancement. Gallbladder de monstrates punctate luminal calcifications without wall thickening, unchanged. Biliary system is non dilated. Pancreas enhances normally. No adrenal nodules. Kidneys are normal in size, without hydr onephrosis. Peritoneum and bowel: Contrast enhanced bowel loops appear normal in caliber. Scattered colonic dive rticula are present. No free fluid or air. Nodes and vessels: No retroperitoneal or mesenteric adenopathy by size criteria. Aorta and inferior vena cava are normal in size. Bones: No suspicious bony lesions. No vertebral body compression fractures. Miscellaneous: No ventral hernias. IMPRESSION: 1. Diverticulosis. Otherwise, unremarkable exam. Reviewed by: Joyce Dallas MD on 10/23/2020 1:45 PM PDT Approved by: Joyce Dallas MD on 10/23/2020 1:45 PM PDT Station ID: [id number]
== END 2020-10-23 11:47 | disposition home or self-care (01) ==
LOC: DI 11:46
PROVIDERS: ATTEND Family Medicine
DX: R63.0 Anorexia (principal); R63.4 Abnormal weight loss; R68.81 Early satiety; K57.30 Diverticulosis of large intestine without perforation or abscess without bleeding
CPT/HCPCS: 74160; Q9967

== ENCOUNTER 2020-11-22 07:00 | Outpatient (CLI) | payer MEDICARE, OTHER ==
[2020-11-22 16:07] LABS: BASOPHILS % (AUTO) 0.6 %; EOSINOPHILS # (AUTO) 0.2 10^3/uL (0.0-0.7); EOSINOPHILS % (AUTO) 2.3 %; HCT - HEMATOCRIT 35.2 % (37.0-47.0); HGB - HEMOGLOBIN 11.3 g/dL (12.0-16.0); LYMPHOCYTES # (AUTO) 1.8 10^3/uL (1.5-3.5); LYMPHOCYTES % (AUTO) 27.3 %; MEAN CORPUSCULAR HGB CONC 32.1 g/dL (32.0-36.0); MEAN CORPUSCULAR VOLUME 90.5 fL (81.0-99.0); MEAN PLATELET VOLUME 9.6 fL (7.9-10.8); MONOCYTES # (AUTO) 0.6 10^3/uL (0.0-1.0); NEUTROPHILS % (AUTO) 60.6 %; PLT - PLATELET COUNT 276 10^3/uL (130-450); RED BLOOD COUNT 3.89 10^6/uL (4.20-5.40); RED CELL DISTRIBUTION WIDTH 14.4 % (12.0-15.0); WHITE BLOOD COUNT 6.6 x10^3/uL (4.8-10.8)
[2020-11-22 16:19] LABS: ALBUMIN 4.1 g/dL (3.2-5.5); ALBUMIN/GLOBULIN RATIO 1.5 (1.0-2.2); BILIRUBIN,TOTAL 0.5 mg/dL (0.2-1.0); CALCIUM 9.4 mg/dL (8.5-10.3); CREATININE 0.9 mg/dL (0.4-1.0); POTASSIUM 4.2 mmol/L (3.5-5.0); TOTAL PROTEIN 6.9 g/dL (6.7-8.2)
== END 2020-11-22 23:59 | disposition home or self-care (01) ==
LOC: LAB 07:00
PROVIDERS: ATTEND Family Medicine
DX: R63.4 Abnormal weight loss (principal); R68.81 Early satiety
CPT/HCPCS: 36415; 80053; 85025

== ENCOUNTER 2020-11-22 15:35 | Outpatient (CLI) | payer MEDICARE, OTHER | END 2020-11-22 15:36 | disposition home or self-care (01) | LOC: LAB 15:35 | PROVIDERS: ATTEND Family Medicine | DX: Z53.9 Procedure and treatment not carried out, unspecified reason (principal) ==

== ENCOUNTER 2021-02-08 09:31 | Outpatient (CLI) | payer MEDICARE, OTHER ==
[2021-02-08 10:08] LABS: ALBUMIN 4.3 g/dL (3.2-5.5); ALBUMIN/GLOBULIN RATIO 1.6 (1.0-2.2); ALKALINE PHOSPHATASE 60 IU/L (42-121); ALT ALANINE AMINOTRANSFERASE 15 IU/L (10-60); AST ASPARTATE AMINOTRANSFERASE 17 IU/L (10-42); BILIRUBIN,TOTAL 0.9 mg/dL (0.2-1.0); BUN - BLOOD UREA NITROGEN 19 mg/dL (6-20); CALCIUM 9.5 mg/dL (8.5-10.3); CARBON DIOXIDE - CO2 28 mmol/L (21-32); CHLORIDE 104 mmol/L (101-111); CHOL/HDL RATIO 2.2 (<4.4); CHOLESTEROL 115 mg/dL; CREATININE 0.9 mg/dL (0.4-1.0); GFR - MDRD 60 (>89); GLUCOSE 101 mg/dL (70-100); HDL CHOLESTEROL 52 mg/dL; LDL CHOLESTEROL,CALCULATED 46 mg/dL; LDL/HDL RATIO 0.9 (<4.4); POTASSIUM 3.9 mmol/L (3.5-5.0); SODIUM 140 mmol/L (135-145); TRIGLYCERIDES 85 mg/dL; VLDL CHOLESTEROL 17 mg/dL
== END 2021-02-08 09:32 | disposition home or self-care (01) ==
LOC: LAB 09:31
PROVIDERS: ATTEND Family Medicine
DX: I25.10 Atherosclerotic heart disease of native coronary artery without angina pectoris (principal)
CPT/HCPCS: 36415; 80053; 80061; 83721

== ENCOUNTER 2021-02-09 13:57 | Outpatient (CLI) | payer MEDICARE, OTHER ==
[2021-02-09 14:11] LABS: BASOPHILS % (AUTO) 0.4 %; EOSINOPHILS # (AUTO) 0.2 10^3/uL (0.0-0.7); EOSINOPHILS % (AUTO) 2.2 %; HCT - HEMATOCRIT 41.4 % (37.0-47.0); HGB - HEMOGLOBIN 13.2 g/dL (12.0-16.0); LYMPHOCYTES # (AUTO) 2.2 10^3/uL (1.5-3.5); LYMPHOCYTES % (AUTO) 32.4 %; MEAN CORPUSCULAR HEMOGLOBIN 28.2 pg (27.0-31.0); MEAN CORPUSCULAR HGB CONC 31.9 g/dL (32.0-36.0); MEAN CORPUSCULAR VOLUME 88.5 fL (81.0-99.0); MEAN PLATELET VOLUME 9.7 fL (7.9-10.8); MONOCYTES # (AUTO) 0.6 10^3/uL (0.0-1.0); MONOCYTES % (AUTO) 9.3 %; NEUTROPHILS # (AUTO) 3.8 10^3/uL (1.5-6.6); NEUTROPHILS % (AUTO) 55.4 %; PLT - PLATELET COUNT 246 10^3/uL (130-450); RED BLOOD COUNT 4.68 10^6/uL (4.20-5.40); RED CELL DISTRIBUTION WIDTH 14.1 % (12.0-15.0); WHITE BLOOD COUNT 6.9 x10^3/uL (4.8-10.8)
== END 2021-02-09 13:58 | disposition home or self-care (01) ==
LOC: LAB 13:57
PROVIDERS: ATTEND Family Medicine
DX: R68.81 Early satiety (principal)
CPT/HCPCS: 36415; 85025

== ENCOUNTER 2021-02-28 12:17 | Day surgery (SDC) | payer MEDICARE, OTHER ==
[2021-02-28] MEDS ORDERED: LACTATED RINGERS 1,000 ML IV ONE ×2 (12:54→14:27)
--- NOTE | 2021-02-28 13:20 | ANESTHESIA ---
Pre-Anesthesia VS, & Labs - Diagnosis early fullness, weight loss - Procedure EGD Vital Signs: Temp Pulse Resp BP Pulse Ox 36.1 C L 64 16 134/86 H 100 02/28/21 12:33 02/28/21 12:33 02/28/21 12:33 02/28/21 12:33 02/28/21 12:33 Height: 5 ft 5 in Weight (kg): 65.2 kg Body Mass Index: 23.9 BMI Classification: Healthy weight - NPO >8 hours - Is Patient ?: No Home Medications and Allergies Home Medications: Ambulatory Orders Atorvastatin Calcium 40 mg PO DAILY PM 02/27/21 Omeprazole 40 mg PO DAILY 02/27/21 Sucralfate [Carafate] 1 tablet PO [facility] 02/27/21 Atorvastatin Calcium 40 mg PO DAILY PM 02/27/21 Omeprazole 40 mg PO DAILY 02/27/21 Sucralfate [Carafate] 1 tablet PO [facility] 02/27/21 Allergies/Adverse Reactions: Allergies Allergy/AdvReac Type Severity Reaction Status Date / Time No Known Drug Allergies Allergy Verified 02/27/21 13:36 Anes History & Medical History - Anesthetic History Anesthesia Complications: reports: No previous complications - Medical History Cardiovascular: reports: High cholesterol, Coronary artery disease, [place] (2019, s/p stent) Pulmonary: reports: None Gastrointestinal: reports: None Urinary: reports: Frequency Neuro: reports: None Musculoskeletal: reports: None Endocrine/Autoimmune: reports: None Blood Disorders: reports: None Skin: reports: None Smoking Status: Never smoker Psychosocial: reports: No issues indicated History of Cancer?: No - Surgical History General: reports: Colonoscopy Eyes Ears Nose Throat (EENT): reports: Detached retina repair, Tonsil/Adenoidectomy Cardiothoracic: reports: Coronary stent Gynecologic: reports: Oophrectomy Orthopedic: reports: Hip replacement Exam General: Alert, Oriented x3, Cooperative, No acute distress Dental: WNL Mouth Openin Fingerbreadth Neck Mobility: Normal Mallampati classification: III Thyromental Distance: 4-6 cm Mental/Cognitive Status: Alert/Oriented X3, Normal for patient Plan Anesthesia Type: Total IV Consent for Procedure(s) Verified and Reviewed: Yes Code Status: Attempt Resuscitation ASA classification: 3-Severe systemic disease Is this case an emergency?: No
[2021-02-28] MEDS ORDERED: PROPOFOL 500 MG/50 ML 500 MG/50 ML VIAL ONE (13:56)
[2021-02-28] MEDS ORDERED: LIDOCAINE 1% ABBOJECT 50 MG/5 ML SYRINGE ONE (13:57)
[2021-02-28 14:50] VITALS: BP 135/75
--- NOTE | 2021-02-28 15:37 | ANESTHESIA POST OP EVALUATION ---
Anesthesia Post Eval - Post Anesthesia Eval Vitals: Last Vital Signs Temp 37.0 C 02/28/21 14:49 Pulse 64 02/28/21 14:49 Resp 16 02/28/21 14:49 BP 135/75 H 02/28/21 14:49 Pulse Ox 100 02/28/21 14:49 CV Function Including HR & BP: Stable Pain Control: Satisfactory Nausea & Vomiting: Negative Mental Status: Baseline Respiratory Status: Airway Patent Hydration Status: Satisfactory Anesthesia Complications: None
== END 2021-02-28 12:18 | disposition home or self-care (01) ==
LOC: SDS 12:17
PROVIDERS: ATTEND Surgery
PROC: 0DB78ZX Excision of Stomach, Pylorus, Via Natural or Artificial Opening Endoscopic, Diagnostic (ICD-10-PCS; principal; 2021-02-28 14:00)
DX: K29.50 Unspecified chronic gastritis without bleeding (principal); K21.9 Gastro-esophageal reflux disease without esophagitis; I25.10 Atherosclerotic heart disease of native coronary artery without angina pectoris; M51.26 Other intervertebral disc displacement, lumbar region; I25.2 Old myocardial infarction; Z95.5 Presence of coronary angioplasty implant and graft; Z79.82 Long term (current) use of aspirin; Z79.899 Other long term (current) drug therapy
CPT/HCPCS: 43239; J7120

== ENCOUNTER 2021-04-04 13:57 | Outpatient (CLI) | payer MEDICARE, OTHER ==
--- NOTE | 2021-04-05 12:03 | Mammography Report ---
BILATERAL DIGITAL SCREENING MAMMOGRAM 3D/2D: 04/04/2021 CLINICAL: Routine screening. Comparison is made to exams dated: 03/20/2020 mammogram, 04/10/2017 mammogram, and 01/25/2014 mammogra m - [facility]. There are scattered fibroglandular elements in both breasts. No significant masses, calcifications, or other findings are seen in either breast. There has been no significant interval change. IMPRESSION: NEGATIVE There is no mammographic evidence of malignancy. A 1 year screening mammogram is recommended. This exam was interpreted at Station ID: [id number]. NOTE: For mammograms, a report in lay terms will be sent to the patient. Approximately 15% of breast malignancies will not be visualized mammographically. In the management of a palpable breast mass, a negative mammogram must not discourage biopsy of a clinically suspicious lesion. Electronically Signed By: Rob Valerio M.D. [email or web address]:04/04/2021 15:01:48 ACR BI-RADS Category 1: Negative 3341F PARENCHYMAL PATTERN: (A) - The breast(s) demonstrate(s) scattered fibroglandular densities. BI-RADS CATEGORY: (1) - 1 RECOMMENDATION: (ANNUAL) - Recommend routine annual screening mammography. [id number] 1 year screening LATERALITY: (B)
== END 2021-04-04 13:58 | disposition home or self-care (01) ==
LOC: DI 13:57
DX: Z12.31 Encounter for screening mammogram for malignant neoplasm of breast (principal)

== ENCOUNTER 2021-07-27 08:48 | Outpatient (CLI) | payer MEDICARE, OTHER ==
[2021-07-27 09:07] LABS: BASOPHILS # (AUTO) 0.1 10^3/uL (0.0-0.1); BASOPHILS % (AUTO) 0.5 %; EOSINOPHILS # (AUTO) 0.1 10^3/uL (0.0-0.7); HGB - HEMOGLOBIN 14.1 g/dL (12.0-16.0); LYMPHOCYTES # (AUTO) 3.5 10^3/uL (1.5-3.5); LYMPHOCYTES % (AUTO) 35.3 %; MEAN CORPUSCULAR HEMOGLOBIN 29.2 pg (27.0-31.0); MEAN CORPUSCULAR HGB CONC 32.8 g/dL (32.0-36.0); MEAN PLATELET VOLUME 9.8 fL (7.9-10.8); MONOCYTES # (AUTO) 1.1 10^3/uL (0.0-1.0); MONOCYTES % (AUTO) 11.5 %; NEUTROPHILS % (AUTO) 51.3 %; PLT - PLATELET COUNT 309 10^3/uL (130-450); RED BLOOD COUNT 4.83 10^6/uL (4.20-5.40); RED CELL DISTRIBUTION WIDTH 13.9 % (12.0-15.0); WHITE BLOOD COUNT 9.8 x10^3/uL (4.8-10.8)
[2021-07-27 09:19] LABS: ALBUMIN 4.4 g/dL (3.2-5.5); ALBUMIN/GLOBULIN RATIO 1.4 (1.0-2.2); BILIRUBIN,TOTAL 0.9 mg/dL (0.2-1.0); CALCIUM 9.6 mg/dL (8.5-10.3); POTASSIUM 3.3 mmol/L (3.5-5.0); TOTAL PROTEIN 7.5 g/dL (6.7-8.2)
--- NOTE | 2021-07-27 11:12 | XRAY Report ---
PROCEDURE: Chest 2 View X-Ray INDICATIONS: EXERTIONAL DYSPNEA TECHNIQUE: 2 view(s) of the chest. COMPARISON: 05/20/2019. FINDINGS: Surgical changes and devices: None. Lungs and pleura: No pleural effusions or pneumothorax. Lungs are clear. Mediastinum: Mediastinal contours are normal. Heart size is normal. Bones and chest wall: No suspicious bony abnormalities. Soft tissues appear unremarkable. IMPRESSION: No acute cardiopulmonary disease process. Reviewed by: Felicia San MD, PhD on 07/27/2021 11:10 AM PDT Approved by: Felicia San MD, PhD on 07/27/2021 11:10 AM PDT Station ID: [id number]
== END 2021-07-27 08:49 | disposition home or self-care (01) ==
LOC: DI 08:48
PROVIDERS: ATTEND Family Medicine
DX: R06.09 Other forms of dyspnea (principal)
CPT/HCPCS: 36415; 80053; 85025

== ENCOUNTER 2021-12-18 10:50 | Outpatient (CLI) | payer MEDICARE, OTHER ==
[2021-12-18 11:21] LABS: ALBUMIN 4.2 g/dL (3.2-5.5); ALBUMIN/GLOBULIN RATIO 1.6 (1.0-2.2); ALKALINE PHOSPHATASE 60 IU/L (42-121); ALT ALANINE AMINOTRANSFERASE 16 IU/L (10-60); AST ASPARTATE AMINOTRANSFERASE 20 IU/L (10-42); BILIRUBIN,TOTAL 0.8 mg/dL (0.2-1.0); BUN - BLOOD UREA NITROGEN 18 mg/dL (6-20); CALCIUM 9.7 mg/dL (8.5-10.3); CARBON DIOXIDE - CO2 29 mmol/L (21-32); CHLORIDE 106 mmol/L (101-111); CHOL/HDL RATIO 1.9 (<4.4); CHOLESTEROL 112 mg/dL; CREATININE 0.9 mg/dL (0.4-1.0); GFR - MDRD 60 (>89); GLUCOSE 91 mg/dL (70-100); HDL CHOLESTEROL 59 mg/dL; LDL CHOLESTEROL,CALCULATED 41 mg/dL; LDL/HDL RATIO 0.7 (<4.4); POTASSIUM 4.5 mmol/L (3.5-5.0); SODIUM 141 mmol/L (135-145); TOTAL PROTEIN 6.9 g/dL (6.7-8.2); TRIGLYCERIDES 58 mg/dL; VLDL CHOLESTEROL 12 mg/dL
== END 2021-12-18 10:51 | disposition home or self-care (01) ==
LOC: LAB 10:50
PROVIDERS: ATTEND Internal Medicine Cardiovascular Disease
DX: I25.10 Atherosclerotic heart disease of native coronary artery without angina pectoris (principal)
CPT/HCPCS: 36415; 80053; 80061; 83721

== ENCOUNTER 2022-01-04 10:20 | Outpatient (CLI) | payer MEDICARE, OTHER ==
--- NOTE | 2022-01-04 17:10 | XRAY Report ---
PROCEDURE: Chest 2 View X-Ray INDICATIONS: CRONIC COUGH TECHNIQUE: 2 view(s) of the chest. COMPARISON: None. FINDINGS: Surgical changes and devices: None. Lungs and pleura: No pleural effusions or pneumothorax. Lungs are clear. Mediastinum: Mediastinal contours are normal. Heart size is normal. Bones and chest wall: No suspicious bony abnormalities. Soft tissues appear unremarkable. IMPRESSION: No acute cardiopulmonary pathology. Reviewed by: Avinash Wakefield MD on 01/04/2022 5:09 PM PDT Approved by: Avinash Wakefield MD on 01/04/2022 5:09 PM PDT Station ID: [id number]
== END 2022-01-04 10:21 | disposition home or self-care (01) ==
LOC: DI 10:20
PROVIDERS: ATTEND Nurse Practitioner
DX: R05.3 Chronic cough (principal)

== ENCOUNTER 2022-04-22 13:28 | Outpatient (CLI) | payer MEDICARE, OTHER ==
--- NOTE | 2022-04-23 11:52 | Mammography Report ---
BILATERAL DIGITAL SCREENING MAMMOGRAM 3D/2D: 04/22/2022 CLINICAL: Routine screening. Comparison is made to exams dated: 04/04/2021 mammogram, 03/20/2020 mammogram, and 04/10/2017 mammogra m - [facility]. There are scattered areas of fibroglandular density in both breasts (category b / 25%-50% glandular t issue). No significant masses, calcifications, or other findings are seen in either breast. There has been no significant interval change. IMPRESSION: NEGATIVE There is no mammographic evidence of malignancy. A 1 year screening mammogram is recommended. Based on the Tyrer Cuzick model (a risk assessment model) the patients lifetime risk is 1.2% and her 10 year risk is 0.0%. According to the ACR, ACS, and NCCN guidelines, an annual breast MRI exam alcon g with mammogram is recommended if the patients lifetime risk is 20% or greater. This exam was interpreted at Station ID: [id number]. NOTE: For mammograms, a report in lay terms will be sent to the patient. Approximately 15% of breast malignancies will not be visualized mammographically. In the management of a palpable breast mass, a negative mammogram must not discourage biopsy of a clinically suspicious lesion. Electronically Signed By: Rob [email or web address]/[email or web address]:04/22/2022 17:41:23 ACR BI-RADS Category 1: Negative 3341F PARENCHYMAL PATTERN: (A) - The breast(s) demonstrate(s) scattered fibroglandular densities. BI-RADS CATEGORY: (1) - 1 RECOMMENDATION: (ANNUAL) - Recommend routine annual screening mammography. [id number] 1 year screening LATERALITY: (B)
== END 2022-04-22 13:29 | disposition home or self-care (01) ==
LOC: DI 13:28
DX: Z12.31 Encounter for screening mammogram for malignant neoplasm of breast (principal)

== ENCOUNTER 2022-09-14 22:41 | Emergency (ER) | payer MEDICARE, OTHER ==
[2022-09-14] MEDS ORDERED: ASPIRIN CHEW 81 MG TABLET PO STA (22:54)
[2022-09-14] MEDS ORDERED: NITROGLYCERIN SL 0.4 MG TABLET SL STA (22:54)
--- NOTE | 2022-09-14 22:54 | ED Physician Documentation ---
History of Present Illness - Stated complaint Stated Complaint: CHEST PX - Additonal information Additional information: Patient is 82-year-old female presenting to the emergency department with chief complaint of chest pain. Past medical significant for myocardial infarction th at occurred in 2019 requiring stent placement. Reports substernal and left- sided chest pain that she states is similar to the pain she was having in 2019 during her original cardiac event. It began at approximately 230 this afternoon. She reports that it did javi after drinking something however the pain began again a few hours ago and has been persistent since then. No associated diaphoresis, shortness of breath or radiation to the pain. Regularly takes omeprazole, Lipitor, daily baby aspirin. Denies any recent travel history of blood clots. 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 : Frequency HEENT: None Psych: None Musculoskeletal: None Derm: None - Past Surgical History Past Surgical History: Yes General: Colonoscopy Ortho: Hip replacement /BEER RUNNER: Oophrectomy Cardiovascular: Coronary stent HEENT: Detached retina repair, Tonsil/Adenoidectomy - Present Medications Home Medications: Ambulatory Orders Medication Instructions Recorded Confirmed Atorvastatin Calcium 40 mg PO DAILY PM 02/27/21 09/14/22 - Allergies Allergies/Adverse Reactions: Allergies Allergy/AdvReac Type Severity Reaction Status Date / Time No Known Drug Allergies Allergy Verified 09/14/22 22:58 - Social History Does the pt smoke?: No Smoking Status: Never smoker Does the pt drink ETOH?: No Does the pt have substance abuse?: No - Immunizations Immunizations are current?: Yes - POLST Patient has POLST: No PD ED PE NORMAL - Vitals Vital signs reviewed: Yes - General General: Alert and oriented X 3 - HEENT HEENT: Atraumatic, PERRL, EOMI, Ears normal, Moist mucous membranes, Pharynx benign - Neck Neck: Supple, no meningeal sign - Cardiac Cardiac: RRR, No murmur, No gallop, Strong equal pulses - Respiratory Respiratory: No respiratory distress - Abdomen Abdomen: Normal bowel sounds - Female Female : Deferred - Rectal Rectal: Deferred - Extremities Extremities: No deformity - Neuro Neuro: Alert and oriented X 3, knotter 2-12 intact, No motor deficit, Normal speech Results - Vitals Vitals: Vital Signs - 24 hr 09/14/22 09/14/22 09/14/22 22:49 23:04 23:34 Temperature 36.7 C Heart Rate 67 67 68 Respiratory 21 19 16 Rate Blood Pressure 159/95 H 161/76 H 134/79 H O2 Saturation 98 99 99 Oxygen O2 Source Room air - EKG (time done) 2245 EKG releavant findings:: EKG personally interpreted by author of this note. Relevant findings are: Sinus rhythm with rate 66 bpm. Normal axis. Normal WI, QRS, QTc intervals. No ST segment elevations. Some nonspecific ST abnormalities lead V6. In comparison to previous EKG 08/31/2020, no significant changes noted. - Labs Labs: Laboratory Tests 09/14/22 09/14/22 09/14/22 22:57 22:57 22:57 WBC 6.8 RBC 4.40 Hgb 12.6 Hct 39.0 MCV 88.6 MCH 28.6 MCHC 32.3 RDW 13.6 Plt Count 255 MPV 9.8 Neut # (Auto) 3.8 Lymph # (Auto) 2.1 [place] # (Auto) 0.7 Eos # (Auto) 0.2 Baso # (Auto) 0.1 Absolute Nucleated RBC 0.00 Nucleated RBC % 0.0 D-Dimer < 200.0 L Sodium 141 Potassium 3.6 Chloride 109 Carbon Dioxide 26 Anion Gap 6.0 BUN 21 H Creatinine 1.0 Estimated GFR (MDRD) 53 L Glucose 95 Calcium 9.4 Total Bilirubin 0.5 AST 18 ALT 17 Alkaline Phosphatase 61 Troponin I High Sens Total Protein 6.9 Albumin 3.9 Globulin 3.0 Albumin/Globulin Ratio 1.3 Lipase 54 H 09/14/22 09/15/22 22:57 00:00 WBC RBC Hgb Hct MCV MCH MCHC RDW Plt Count MPV Neut # (Auto) Lymph # (Auto) [place] # (Auto) Eos # (Auto) Baso # (Auto) Absolute Nucleated RBC Nucleated RBC % D-Dimer Sodium Potassium Chloride Carbon Dioxide Anion Gap BUN Creatinine Estimated GFR (MDRD) Glucose Calcium Total Bilirubin AST ALT Alkaline Phosphatase Troponin I High Sens 2.5 2.6 Total Protein Albumin Globulin Albumin/Globulin Ratio Lipase PD Medical Decision Making - ED course Complexity details: reviewed old records, re-evaluated patient, d/w patient ED course: Patient 82-year-old female presenting to the emergency department with left- sided chest pain that of been happening intermittently since 230 this afternoon. Afebrile, hemodynamically stable on arrival to the emergency department. She has a known history of coronary artery disease. EKG was obtained which had some nonspecific ST changes but was largely unchanged from previous. D-dimer negative. Serial high-sensitivity troponins negative. Chest x-ray nonacute. Patient was given aspirin and a single nitro tab here in the emergency department. On reevaluation found to be resting comfortably and in no acute distress. Will discharge at this time for follow-up with primary care/cardiology with explicit instructions to return to the emergency department immediately for any new or worsening symptoms. Departure - Departure Disposition: 01 Home, Self Care Clinical Impression: Chest pain Qualifiers: Chest pain type: unspecified Qualified Code(s): R07.9 - Chest pain, unspecified Comments: Thank you for allowing us to care for you today would be general. Today in the emergency department you were evaluated for any possible life- threatening medical emergency. All of the testing performed in the emergency department today including your chest x-ray, EKG and blood work was all very reassuring. As we discussed there are many reasons why individuals can have episodes of chest pain. 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 I also recommend reaching out to your primary care doctor for the same reason. If your pain returns or if you develop any new or worsening symptoms its important that you return to the emergency department immediately for reevaluat ion.
[2022-09-14 23:02] LABS: BASOPHILS # (AUTO) 0.1 10^3/uL (0.0-0.1); BASOPHILS % (AUTO) 0.9 %; EOSINOPHILS # (AUTO) 0.2 10^3/uL (0.0-0.7); EOSINOPHILS % (AUTO) 2.3 %; HGB - HEMOGLOBIN 12.6 g/dL (12.0-16.0); LYMPHOCYTES # (AUTO) 2.1 10^3/uL (1.5-3.5); LYMPHOCYTES % (AUTO) 30.3 %; MEAN CORPUSCULAR HEMOGLOBIN 28.6 pg (27.0-31.0); MEAN CORPUSCULAR HGB CONC 32.3 g/dL (32.0-36.0); MEAN CORPUSCULAR VOLUME 88.6 fL (81.0-99.0); MEAN PLATELET VOLUME 9.8 fL (7.9-10.8); MONOCYTES # (AUTO) 0.7 10^3/uL (0.0-1.0); MONOCYTES % (AUTO) 10.4 %; NEUTROPHILS # (AUTO) 3.8 10^3/uL (1.5-6.6); PLT - PLATELET COUNT 255 10^3/uL (130-450); RED CELL DISTRIBUTION WIDTH 13.6 % (12.0-15.0); WHITE BLOOD COUNT 6.8 x10^3/uL (4.8-10.8)
[2022-09-14 23:15] LABS: ALBUMIN 3.9 g/dL (3.2-5.5); ALBUMIN/GLOBULIN RATIO 1.3 (1.0-2.2); BILIRUBIN,TOTAL 0.5 mg/dL (0.2-1.0); CALCIUM 9.4 mg/dL (8.5-10.3); POTASSIUM 3.6 mmol/L (3.5-5.0); TOTAL PROTEIN 6.9 g/dL (6.7-8.2)
--- NOTE | 2022-09-14 23:43 | XRAY Report ---
PROCEDURE: Chest 1 View X-Ray INDICATIONS: chest pain TECHNIQUE: One view of the chest was acquired. COMPARISON: 01/04/2022, 07/27/2021. FINDINGS: Surgical changes and devices: None. Lungs and pleura: No pleural effusions or pneumothorax. Lungs are clear. Mediastinum: Mediastinal contours appear normal. Heart size is normal. Bones and chest wall: No suspicious bony lesions. Overlying soft tissues appear unremarkable. IMPRESSION: No acute cardiopulmonary process. Reviewed by: Avinash Patterson MD on 09/14/2022 11:42 PM PDT Approved by: Avinash Patterson MD on 09/14/2022 11:42 PM PDT Station ID: [id number]
[2022-09-15 00:46] VITALS: BP 143/83
== END 2022-09-15 00:45 | disposition home or self-care (01) ==
LOC: ED 22:41
DX: R07.9 Chest pain, unspecified (principal); I25.2 Old myocardial infarction; Z95.5 Presence of coronary angioplasty implant and graft
CPT/HCPCS: 36415; 71045; 80053; 83690; 84484; 85025; 85379; 93005; 99284; A9270

== ENCOUNTER 2022-12-05 19:14 | Emergency (ER) | payer MEDICARE, OTHER ==
[2022-12-05 19:24] VITALS: BP 140/90; O2SAT 98
--- NOTE | 2022-12-05 19:44 | XRAY Report ---
PROCEDURE: Wrist 4 View LT INDICATIONS: Trauma TECHNIQUE: 3 views of the wrist were acquired. COMPARISON: None. FINDINGS: Bones: Diffuse osteopenia. There is a impacted, minimally comminuted fracture of the distal left rad ius with possible intra-articular extension visualized. Visualized scaphoid appears intact. Severe de generative changes of the left first carpometacarpal joint. Soft tissues: No suspicious soft tissue calcifications or masses. IMPRESSION: Mildly displaced, impacted distal left radial fracture with possible intra-articular extension. Severe first carpometacarpal degenerative change. Osteopenia Reviewed by: Michael Arias MD on 12/05/2022 7:43 PM PDT Approved by: Michael Arias MD on 12/05/2022 7:43 PM PDT Station ID: [id number]
--- NOTE | 2022-12-05 20:13 | ED Physician Documentation ---
PD HPI UPPER EXT INJURY - Stated complaint Stated Complaint: LT HAND INJ - Chief complaint Chief Complaint: Trauma Ext - History obtained from History obtained from: Patient, Family - History of Present Illness Location: Left, Wrist Type of injury: Fall Where injury occurred: Home Pain level max: 6 Pain level now: 5 Improved by: Rest Worsened by: Moving, Palpating Associated symptoms: Swelling - Additonal information Additional information: 82 year old female Presents to the emergency department after she was dancing tonight at a friend's house, slipped and fell and landed on the left wrist. Concerned about possible fracture. Denies any other injuries. Not on blood thinners. No head, neck, back pain. Patient is right-handed. Worse with movement, better with rest. No numbness or tingling. 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 : Frequency HEENT: None Psych: None Musculoskeletal: None Derm: None - Past Surgical History Past Surgical History: Yes General: Colonoscopy Ortho: Hip replacement /MEDIA MARKETING COORDINATOR: Oophrectomy Cardiovascular: Coronary stent HEENT: Detached retina repair, Tonsil/Adenoidectomy - Present Medications Home Medications: Ambulatory Orders Medication Instructions Recorded Confirmed Atorvastatin Calcium 40 mg PO DAILY PM 02/27/21 12/05/22 Aspirin Chewable [[place] 81 mg PO DAILY 12/05/22 12/05/22 Aspirin] Omeprazole 40 mg PO DAILY 12/05/22 12/05/22 - Allergies Allergies/Adverse Reactions: Allergies Allergy/AdvReac Type Severity Reaction Status Date / Time No Known Drug Allergies Allergy Verified 12/05/22 19:16 - Social History Does the pt smoke?: No Smoking Status: Never smoker Does the pt drink ETOH?: No Does the pt have substance abuse?: No - Immunizations Immunizations are current?: Yes - POLST Patient has POLST: No PD ED PE NORMAL - Vitals Vital signs reviewed: Yes - General General: Alert and oriented X 3, No acute distress - HEENT HEENT: Moist mucous membranes - Neck Neck: Supple, no meningeal sign - Derm Derm: Warm and dry - Extremities Extremities: Other (L wrist - Tender to palpation over the left distal radius. Neurovascular intact. No gross deformity. Otherwise normal examination of the hand and wrist. No snuffbox tenderness.) - Neuro Neuro: Alert and oriented X 3 - Psych Psych: Normal mood, Normal affect Results - Vitals Vitals: Vital Signs - 24 hr 12/05/22 19:16 Temperature 36.5 C Heart Rate 65 Respiratory 16 Rate Blood Pressure 140/90 H O2 Saturation 98 Oxygen O2 Source Room air - Rads (name of study) L wrist xray Relevant Findings:: Final report received, See rad report Procedures - Splint (location) - Minor L wrist xray Splint applied by: Physician, Nurse Type of splint: Fiberglass, Volar cock up Other: Patient tolerated well, No complications, Neurovascular intact, Good alignment, Sling provided PD Medical Decision Making - ED course Complexity details: reviewed results, re-evaluated patient, considered differential, d/w patient, d/w family ED course: 82-year-old female status post a ground-level fall. Has a distal radius fracture. Placed in a volar splint. We will have her follow-up with orthopedics for further care. Declines pain medication here or for home. Patient counseled regarding signs and symptoms for which I believe and urgent re-evaluation would be necessary. Patient with good understanding of and agreement to plan and is comfortable going home at this time This document was made in part using voice recognition software. While efforts are made to proofread this document, sound alike and grammatical errors may occur. Neurovascular intact after splint application Departure - Departure Disposition: 01 Home, Self Care Clinical Impression: Distal radius fracture, left Qualifiers: Encounter type: initial encounter Fracture type: closed Fracture morphology: unspecified fracture morphology Qualified Code(s): S52.502A - Unspecified fracture of the lower end of left radius, initial encounter for closed fracture Condition: Good Instructions: ED Fx Upper Ext Follow-Up: Leo Hector MD [Primary Care Provider] - Within 1 week [facility] [Provider Group] Bong Pitt MD [Provider Admit Priv/Credential] - Darya Keller PA-C [Provider Admit Priv/Credential] - Comments: Please follow-up with orthopedics for further care. Please return if you worsen. You have a fracture of your left distal radius. You were placed into a splint tonight. There is possible intra-articular extension, they will likely want to place you into a cast, occasionally these can require surgery. You can use Motrin or Tylenol as needed for pain. Please call the orthopedic office for an appointment. IMPRESSION: Mildly displaced, impacted distal left radial fracture with possible intra- articular extension. Severe first carpometacarpal degenerative change. Osteopenia Forms: PCP List Discharge Date/Time: 12/05/22 20:21
== END 2022-12-05 20:21 | disposition home or self-care (01) ==
LOC: ED 19:14
DX: S52.502A Unspecified fracture of the lower end of left radius, initial encounter for closed fracture (principal); W18.30XA Fall on same level, unspecified, initial encounter; Y93.41 Activity, dancing
CPT/HCPCS: 29105; 99283

== ENCOUNTER 2022-12-09 18:10 | Emergency (ER) | payer MEDICARE, OTHER ==
[2022-12-09 18:21] VITALS: BP 150/88; O2SAT 100
--- NOTE | 2022-12-09 18:30 | ED Physician Documentation ---
History of Present Illness - Stated complaint Stated Complaint: LT ARM INJ,SWELLING - Chief complaint Chief Complaint: Trauma Ext - History obtained from History obtained from: Patient - History of Present Illness Timing: How many days ago (4) Pain level max: 0 Pain level now: 0 - Additonal information Additional information: 82-year-old female presents to the emergency department, complaining of swelling to her left hand and bruising. She was diagnosed with a left distal radius fracture four days ago and was placed into a volar splint. She has an appointment with orthopedics this week. She has been elevating hand. She does not have any pain.She just noted increased bruising and swelling to the left hand. Therefore came in for evaluation. No numbness or tingling. No re-injury. No fevers. 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 : Frequency HEENT: None Psych: None Musculoskeletal: None Derm: None - Past Surgical History Past Surgical History: Yes General: Colonoscopy Ortho: Hip replacement /HEAVY LINE TECHNICIAN: Oophrectomy Cardiovascular: Coronary stent HEENT: Detached retina repair, Tonsil/Adenoidectomy - Present Medications Home Medications: Ambulatory Orders Medication Instructions Recorded Confirmed Atorvastatin Calcium 40 mg PO DAILY PM 02/27/21 12/05/22 Aspirin Chewable [[place] 81 mg PO DAILY 12/05/22 12/05/22 Aspirin] Omeprazole 40 mg PO DAILY 12/05/22 12/05/22 - Allergies Allergies/Adverse Reactions: Allergies Allergy/AdvReac Type Severity Reaction Status Date / Time No Known Drug Allergies Allergy Verified 12/09/22 18:13 - Social History Does the pt smoke?: No Smoking Status: Never smoker Does the pt drink ETOH?: No Does the pt have substance abuse?: No - Immunizations Immunizations are current?: Yes - POLST Patient has POLST: No PD ED PE NORMAL - Vitals Vital signs reviewed: Yes - General General: Alert and oriented X 3, No acute distress - Derm Derm: Warm and dry - Extremities Extremities: Other (There is mild swelling to the left hand, there is bruising around the left wrists and dorsum of the hand. Neurovascular intact.) - Neuro Neuro: Alert and oriented X 3 - Psych Psych: Normal mood, Normal affect Results - Vitals Vitals: Vital Signs - 24 hr 12/09/22 18:13 Temperature 36.5 C Heart Rate 65 Respiratory 16 Rate Blood Pressure 150/88 H O2 Saturation 100 Oxygen O2 Source Room air Procedures - Splint (location) - Minor L forearm Splint applied by: Physician, Nurse Type of splint: Fiberglass, Volar cock up Other: Patient tolerated well, No complications, Neurovascular intact PD Medical Decision Making - ED course Complexity details: considered differential, d/w patient ED course: The splint was removed from the patient. Patient tolerated well. The bruising and swelling is expected for the course of injury. No evidence of compartment syndrome. No paresthesias. a new splint was applied and we will have her follow up with orthopedics this week as scheduled. No emergency medical condition at this time. Neurovascular intact after splint application. Patient counseled regarding signs and symptoms for which I believe and urgent re-evaluation would be necessary. Patient with good understanding of and agreement to plan and is comfortable going home at this time. This document was made in part using voice recognition software. While efforts are made to proofread this document, sound alike and grammatical errors may occur. Departure - Departure Disposition: 01 Home, Self Care Clinical Impression: Distal radius fracture, left Qualifiers: Encounter type: initial encounter Fracture type: closed Fracture morphology: unspecified fracture morphology Qualified Code(s): S52.502A - Unspecified fracture of the lower end of left radius, initial encounter for closed fracture Condition: Good Instructions: ED Fx Upper Ext Follow-Up: orthopedics,on friday [Other] Comments: Please follow-up with orthopedics on Friday as scheduled. A new splint was applied today. Please make sure you are elevating the hand and arm regularly. Forms: PCP List Discharge Date/Time: 12/09/22 18:36
== END 2022-12-09 18:36 | disposition home or self-care (01) ==
LOC: ED 18:10
DX: S52.502A Unspecified fracture of the lower end of left radius, initial encounter for closed fracture (principal); X58.XXXA Exposure to other specified factors, initial encounter
CPT/HCPCS: 29125; 99282; 99283

== ENCOUNTER 2022-12-31 08:00 | Outpatient (CLI) | payer MEDICARE, OTHER ==
--- NOTE | 2022-12-31 15:42 | XRAY Report ---
PROCEDURE: Wrist 3 View LT INDICATIONS: LEFT WRIST FRACTURE TECHNIQUE: 3 views of the wrist were acquired. COMPARISON: 12/05/2022 FINDINGS: Bones: Subacute impacted distal radius fracture. The degree of impaction may be slightly greater jassi n on the previous study. 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 Soft tissues: No suspicious soft tissue calcifications or masses. IMPRESSION: 1. Subacute distal radius fracture, impacted, with question of slight interval increase in the degree of impaction present. 2. 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 Reviewed by: Paul Vasquez MD on 12/31/2022 3:40 PM PDT Approved by: Paul Vasquez MD on 12/31/2022 3:40 PM PDT Station ID: [id number]
== END 2022-12-31 23:59 | disposition home or self-care (01) ==
LOC: DI.WOS 08:00
PROVIDERS: ATTEND Orthopaedic Surgery
DX: S59.292A Other physeal fracture of lower end of radius, left arm, initial encounter for closed fracture (principal); M18.12 Unilateral primary osteoarthritis of first carpometacarpal joint, left hand

== ENCOUNTER 2023-04-22 09:44 | Outpatient (CLI) | payer MEDICARE, OTHER ==
[2023-04-22 10:09] LABS: BASOPHILS % (AUTO) 0.7 %; EOSINOPHILS # (AUTO) 0.1 10^3/uL (0.0-0.7); EOSINOPHILS % (AUTO) 2.2 %; HCT - HEMATOCRIT 37.4 % (37.0-47.0); HGB - HEMOGLOBIN 12.3 g/dL (12.0-16.0); LYMPHOCYTES # (AUTO) 1.6 10^3/uL (1.5-3.5); LYMPHOCYTES % (AUTO) 27.2 %; MEAN CORPUSCULAR HEMOGLOBIN 29.4 pg (27.0-31.0); MEAN CORPUSCULAR HGB CONC 32.9 g/dL (32.0-36.0); MEAN CORPUSCULAR VOLUME 89.5 fL (81.0-99.0); MEAN PLATELET VOLUME 9.5 fL (7.9-10.8); MONOCYTES # (AUTO) 0.7 10^3/uL (0.0-1.0); MONOCYTES % (AUTO) 12.3 %; NEUTROPHILS # (AUTO) 3.4 10^3/uL (1.5-6.6); NEUTROPHILS % (AUTO) 57.4 %; PLT - PLATELET COUNT 230 10^3/uL (130-450); RED BLOOD COUNT 4.18 10^6/uL (4.20-5.40); RED CELL DISTRIBUTION WIDTH 14.3 % (12.0-15.0); WHITE BLOOD COUNT 5.9 x10^3/uL (4.8-10.8)
[2023-04-22 10:50] LABS: ALBUMIN/GLOBULIN RATIO 1.6 (1.0-2.2); ALKALINE PHOSPHATASE 62 IU/L (42-121); ALT ALANINE AMINOTRANSFERASE 15 IU/L (10-60); AST ASPARTATE AMINOTRANSFERASE 19 IU/L (10-42); BILIRUBIN,TOTAL 0.9 mg/dL (0.2-1.0); BUN - BLOOD UREA NITROGEN 23 mg/dL (6-20); CALCIUM 9.6 mg/dL (8.5-10.3); CARBON DIOXIDE - CO2 28 mmol/L (21-32); CHLORIDE 104 mmol/L (101-111); CHOLESTEROL 100 mg/dL; GFR - MDRD 53 (>89); GLUCOSE 87 mg/dL (74-104); HDL CHOLESTEROL 50 mg/dL; LDL CHOLESTEROL,CALCULATED 31 mg/dL; LDL/HDL RATIO 0.6 (<4.4); POTASSIUM 4.4 mmol/L (3.5-4.5); SODIUM 138 mmol/L (135-145); TOTAL PROTEIN 6.5 g/dL (6.4-8.9); TRIGLYCERIDES 93 mg/dL (48-352); VLDL CHOLESTEROL 19 mg/dL
[2023-04-22 21:28] LABS: THYROID STIMULATING HORMONE 1.55 uIU/mL (0.34-5.60)
== END 2023-04-22 09:45 | disposition home or self-care (01) ==
LOC: LAB 09:44
PROVIDERS: ATTEND Family Medicine
DX: K21.9 Gastro-esophageal reflux disease without esophagitis (principal); I25.10 Atherosclerotic heart disease of native coronary artery without angina pectoris; Z95.9 Presence of cardiac and vascular implant and graft, unspecified
CPT/HCPCS: 36415; 80053; 80061; 83721; 84443; 85025

== ENCOUNTER 2023-06-19 16:00 | Outpatient (CLI) | payer MEDICARE, OTHER ==
--- NOTE | 2023-06-19 22:29 | XRAY Report ---
PROCEDURE: Thoracic Spine 2V INDICATIONS: OTHER FRACTURE OF T11-T12 VERTEBRA,SEQUELA TECHNIQUE: 2 views of the thoracic spine were acquired. COMPARISON: CT abdomen 10/23/2020 FINDINGS: Bones: There is an approximate 33% compression deformity at T12. No suspicious bony lesions. 12 pair s of ribs are noted, and appear intact where visualized. Soft tissues: No paravertebral stripe thickening. IMPRESSION: T12 compression deformity unchanged since 2020. Reviewed by: Joyce Dallas MD on 06/19/2023 10:27 PM PDT Approved by: Joyce Dallas MD on 06/19/2023 10:27 PM PDT Station ID: [id number]
--- NOTE | 2023-06-19 22:30 | XRAY Report ---
PROCEDURE: Chest 2V INDICATIONS: COUGH TECHNIQUE: 2 views of the chest were acquired. COMPARISON: Chest x-ray 09/14/2022 FINDINGS: Surgical changes and devices: None. Lungs and pleura: No pleural effusions or pneumothorax. Lungs are clear. Mediastinum: Mediastinal contours appear normal. Heart size is enlarged. Bones and chest wall: No suspicious bony lesions. Overlying soft tissues appear unremarkable. IMPRESSION: No acute cardiopulmonary process. Reviewed by: Joyce Dallas MD on 06/19/2023 10:28 PM PDT Approved by: Joyce Dallas MD on 06/19/2023 10:28 PM PDT Station ID: [id number]
== END 2023-06-19 16:01 | disposition home or self-care (01) ==
LOC: DI 16:00
PROVIDERS: ATTEND Family Medicine
DX: R05.9 Cough, unspecified (principal); M48.54XD Collapsed vertebra, not elsewhere classified, thoracic region, subsequent encounter for fracture with routine healing

== ENCOUNTER 2023-11-06 11:23 | Outpatient (CLI) | payer MEDICARE, OTHER ==
[2023-11-06 11:49] LABS: BASOPHILS % (AUTO) 0.6 %; EOSINOPHILS # (AUTO) 0.1 10^3/uL (0.0-0.7); EOSINOPHILS % (AUTO) 0.9 %; HCT - HEMATOCRIT 40.4 % (37.0-47.0); HGB - HEMOGLOBIN 12.9 g/dL (12.0-16.0); LYMPHOCYTES # (AUTO) 1.8 10^3/uL (1.5-3.5); LYMPHOCYTES % (AUTO) 25.5 %; MEAN CORPUSCULAR HGB CONC 31.9 g/dL (32.0-36.0); MEAN CORPUSCULAR VOLUME 90.8 fL (81.0-99.0); MEAN PLATELET VOLUME 10.1 fL (7.9-10.8); MONOCYTES # (AUTO) 0.8 10^3/uL (0.0-1.0); MONOCYTES % (AUTO) 11.8 %; NEUTROPHILS # (AUTO) 4.2 10^3/uL (1.5-6.6); NEUTROPHILS % (AUTO) 61.1 %; PLT - PLATELET COUNT 241 10^3/uL (130-450); RED BLOOD COUNT 4.45 10^6/uL (4.20-5.40); RED CELL DISTRIBUTION WIDTH 13.8 % (12.0-15.0); WHITE BLOOD COUNT 6.9 x10^3/uL (4.8-10.8)
[2023-11-06 11:55] LABS: BILIRUBIN,URINE NEGATIVE (NEGATIVE); GLUCOSE, URINE (UA) NEGATIVE (NEGATIVE); KETONES,URINE (UA) NEGATIVE (NEGATIVE); LEUKOCYTE ESTERASE, URINE NEGATIVE (NEGATIVE); NITRITE,URINE NEGATIVE (NEGATIVE); OCCULT BLOOD,URINE NEGATIVE (NEGATIVE); PH,URINE 5.5 PH (5.0-7.5); PROTEIN,URINE NEGATIVE (NEGATIVE); UROBILINOGEN,URINE 0.2 (NORMAL) E.U./dL (NORMAL)
[2023-11-06 12:04] LABS: ALBUMIN 4.3 g/dL (3.2-5.5); ALBUMIN/GLOBULIN RATIO 1.8 (1.0-2.2); BILIRUBIN,TOTAL 0.7 mg/dL (0.2-1.0); CALCIUM 9.9 mg/dL (8.5-10.3); TOTAL PROTEIN 6.7 g/dL (6.4-8.9)
[2023-11-06 12:14] LABS: THYROID STIMULATING HORMONE 1.62 uIU/mL (0.34-5.60)
[2023-11-06 12:25] LABS: CLARITY,URINE CLEAR (CLEAR)
[2023-11-06 12:48] LABS: RBC,URINE 0-5 /HPF (0-5); WBC,URINE 0-3 /HPF (0-5)
[2023-11-06 12:49] LABS: BACTERIA,URINE None Seen /HPF (None Seen); SQUAMOUS EPITHELIAL CELL,UR FEW Squamous (<= Few)
== END 2023-11-06 11:24 | disposition home or self-care (01) ==
LOC: LAB 11:23
PROVIDERS: ATTEND Family Medicine
DX: R53.83 Other fatigue (principal); R53.81 Other malaise; R35.0 Frequency of micturition; R68.89 Other general symptoms and signs
CPT/HCPCS: 36415; 80053; 81001; 84439; 84443; 84481; 85025; 87086

== ENCOUNTER 2023-11-23 11:20 | Outpatient (CLI) | payer MEDICARE, OTHER ==
--- NOTE | 2023-11-23 13:43 | Ultrasound Report ---
PROCEDURE: Renal (Retroperitoneal) INDICATIONS: URINARY FREQUENCY TECHNIQUE: Real-time scanning was performed of the retroperitoneal organs, with image documentation. COMPARISON: CT abdomen and pelvis dated 10/23/2020. FINDINGS: Kidneys: Right kidney is normal in size. Left kidney is somewhat small, but does not have significant cortical atrophy noted. Right kidney measures 9.2 cm long; left kidney measures 8.0 cm long. Right renal cortical thickness is 1.1 cm; left renal cortical thickness is 1.1 cm. No solid masses, hydron ephrosis, or nephrolithiasis. Bladder: Pre-void bladder volume is 9.2 mL. Post-void residual is 2.1 mL. Pre-void images demonstr ate no intraluminal masses or stones. On pre-void images, bilateral ureteral jets are noted with col or Doppler interrogation. (Of note, ureteral jets may not be detectable in up to 25% of cases due to insufficient differences in specific gravity between ureteral and bladder urine). Miscellaneous: No free abdominal fluid. IMPRESSION: 1. Right kidney is unremarkable. Left kidney is somewhat small, with no cortical thinning noted. Ther e is no hydronephrosis. 2. No post void residual noted. Bladder is unremarkable. Reviewed by: Paul Vasquez MD on 11/23/2023 1:42 PM PDT Approved by: Paul Vasquez MD on 11/23/2023 1:42 PM PDT Station ID: [id number]
== END 2023-11-23 11:21 | disposition home or self-care (01) ==
LOC: DI 11:20
PROVIDERS: ATTEND Family Medicine
DX: R35.0 Frequency of micturition (principal)

== ENCOUNTER 2023-12-09 09:32 | Outpatient (CLI) | payer MEDICARE, OTHER ==
[2023-12-09 10:22] LABS: ALBUMIN 4.1 g/dL (3.2-5.5); ALBUMIN/GLOBULIN RATIO 1.6 (1.0-2.2); ALKALINE PHOSPHATASE 60 IU/L (42-121); ALT ALANINE AMINOTRANSFERASE 11 IU/L (10-60); AST ASPARTATE AMINOTRANSFERASE 15 IU/L (10-42); BILIRUBIN,TOTAL 0.8 mg/dL (0.2-1.0); BUN - BLOOD UREA NITROGEN 14 mg/dL (6-20); CALCIUM 9.5 mg/dL (8.5-10.3); CARBON DIOXIDE - CO2 28 mmol/L (21-32); CHLORIDE 103 mmol/L (101-111); CHOL/HDL RATIO 1.7 (<4.4); CHOLESTEROL 96 mg/dL; GFR - MDRD 53 (>89); GLUCOSE 99 mg/dL (74-104); HDL CHOLESTEROL 58 mg/dL; LDL CHOLESTEROL,CALCULATED 16 mg/dL; LDL/HDL RATIO 0.3 (<4.4); POTASSIUM 4.1 mmol/L (3.5-4.5); SODIUM 136 mmol/L (135-145); TOTAL PROTEIN 6.7 g/dL (6.4-8.9); TRIGLYCERIDES 108 mg/dL; VLDL CHOLESTEROL 22 mg/dL
== END 2023-12-09 09:33 | disposition home or self-care (01) ==
LOC: LAB 09:32
PROVIDERS: ATTEND Internal Medicine Cardiovascular Disease
DX: I25.10 Atherosclerotic heart disease of native coronary artery without angina pectoris (principal)
CPT/HCPCS: 36415; 80053; 80061; 83721

== ENCOUNTER 2023-12-18 08:00 | Outpatient (CLI) | payer MEDICARE, OTHER ==
--- NOTE | 2023-12-18 16:06 | XRAY Report ---
PROCEDURE: Hand 3+V RT INDICATIONS: TRIGGER FINGER OF RIGHT MIDDLE FINGER TECHNIQUE: 3 views of the hand(s) acquired. COMPARISON: None. FINDINGS: Bones: Normal mineralization. No fractures or traumatic subluxation. There is severe irregular joint space loss and osseous remodeling at the fifth DIP joint and mild diffuse joint space loss at the fi fth PIP joint. There is mild joint space loss at the third DIP joint. Subcortical cystic changes are scattered in the carpal bones, distal radius, and distal ulna. Soft tissues: No suspicious soft tissue calcifications or masses. There is mild chondrocalcinosis at the triangular fibrocartilage region. IMPRESSION: Polyarticular degenerative changes ranging from mild to severe, worst in the fifth DIP joint. Mild degeneration at the third DIP. No significant subluxation or suspicious soft tissue calcificatio ns in the third digit. Arthritic changes in the wrist. Reviewed by: Yudith Cartagena MD on 12/18/2023 4:05 PM PDT Approved by: Yudith Cartagena MD on 12/18/2023 4:05 PM PDT Station ID: [id number]
== END 2023-12-18 23:59 | disposition home or self-care (01) ==
LOC: DI.WOS 08:00
PROVIDERS: ATTEND Physician Assistant Surgical
DX: M65.331 Trigger finger, right middle finger (principal); M15.9 Polyosteoarthritis, unspecified